=== PATIENT | male | born 1960 | race Caucasian/White ===

== ENCOUNTER → 2023-06-24 16:46 | Outpatient (CLI) | payer MEDICARE, SELFPAY ==
[2023-06-24 16:27] LABS: INR 2.34 (0.9-1.1); Prothrombin Time 23.9 seconds (10.1-12.5)
== END ==
PROVIDERS: PCP Family Medicine; Visit Provider Family Medicine
DX: Z79.01 Long term (current) use of anticoagulants (principal); Z51.81 Encounter for therapeutic drug level monitoring
CPT/HCPCS: 85610

== ENCOUNTER → 2023-08-03 16:54 | Outpatient (CLI) | payer MEDICARE, SELFPAY ==
[2023-08-03 16:24] LABS: INR 3.63 (0.9-1.1)
== END ==
PROVIDERS: PCP Nurse Practitioner Family; Visit Provider Nurse Practitioner Family
DX: Z79.01 Long term (current) use of anticoagulants (principal); Z51.81 Encounter for therapeutic drug level monitoring
CPT/HCPCS: 85610

== ENCOUNTER → 2023-08-30 16:52 | Outpatient (CLI) | payer MEDICARE, SELFPAY ==
[2023-08-30 17:31] LABS: Basophils % 0.7 % (0.1-2.0); Eosinophils # 0.1 K/mm3 (0.0-0.4); Hematocrit 48.4 % (42.0-52.0); Hemoglobin 15.8 g/dL (14.1-18.0); Lymphocytes # 1.3 K/mm3 (0.7-4.5); Lymphocytes % 19.6 % (10-50); Mean Corpuscular HGB Conc 32.7 g/dL (31.8-35.4); Mean Corpuscular Volume 91.8 fl (80-94); Mean Platelet Volume 11.8 fl (7.4-10.4); Monocytes # 0.5 K/mm3 (0.1-1.0); Monocytes % 6.9 % (1.7-9.3); Neutrophils # 4.7 K/mm3 (1.8-7.8); Neutrophils % 71.9 % (37.0-80.0); Platelet Count 185 K/mm3 (142-424); Red Blood Count 5.27 M/mm3 (4.60-6.20); Red Cell Distribution Width 13.9 % (11.5-17.5); White Blood Count 6.5 K/mm3 (4.8-10.8)
[2023-08-30 17:37] LABS: INR 3.52 (0.9-1.1)
[2023-08-30 18:20] LABS: Alanine Aminotransferase 22 U/L (12-78); Albumin Level 4.6 g/dl (3.5-5.0); Alkaline Phosphatase 55 U/L (38-126); Anion Gap 11.6 mEq/L (5-15); Aspartate Amino Transferase 28 U/L (17-59); Bilirubin,Direct 0.2 mg/dl (0.0-0.4); Bilirubin,Indirect 0.2 mg/dL (0.0-0.9); Bilirubin,Total 0.4 mg/dl (0.2-1.3); Bilirubin,Unconjugated 0.2 mg/dL (0.0-1.1); Blood Urea Nitrogen 21 mg/dl (9-20); Calcium 9.6 mg/dl (8.4-10.2); Carbon Dioxide 26 mmol/L (22.0-30.0); Chloride 106 mmol/L (98-107); Estimated Glomerular Filt Rate 75 ml/min (>60); GFR (African American) 91 ML/MIN (>60); Glucose 78 mg/dl (74-100); Potassium 4.6 mmoL/L (3.5-5.1); Sodium 139 mmol/L (136-145); Total Protein,Serum 7.5 g/dl (6.3-8.2)
== END ==
PROVIDERS: PCP Internal Medicine Advanced Heart Failure and Transplant Cardiology; Visit Provider Internal Medicine Advanced Heart Failure and Transplant Cardiology
DX: I50.22 Chronic systolic (congestive) heart failure (principal); Z51.81 Encounter for therapeutic drug level monitoring; Z79.01 Long term (current) use of anticoagulants; Z95.2 Presence of prosthetic heart valve
CPT/HCPCS: 80048; 80076; 85025; 85610

== ENCOUNTER → 2023-09-23 13:33 | Outpatient (CLI) | payer MEDICARE, SELFPAY ==
[2023-09-23 14:12] LABS: INR 2.55 (0.9-1.1); Prothrombin Time 25.9 seconds (10.1-12.5)
[2023-09-23 14:13] LABS: Basophils % 0.6 % (0.1-2.0); Eosinophils # 0.1 K/mm3 (0.0-0.4); Eosinophils % 1.4 % (0.1-12.0); Hematocrit 43.2 % (42.0-52.0); Hemoglobin 14.9 g/dL (14.1-18.0); Lymphocytes # 1.3 K/mm3 (0.7-4.5); Lymphocytes % 19.8 % (10-50); Mean Corpuscular HGB Conc 34.5 g/dL (31.8-35.4); Mean Corpuscular Hemoglobin 30.8 pg (27.0-31.2); Mean Corpuscular Volume 89.2 fl (80-94); Mean Platelet Volume 10.7 fl (7.4-10.4); Monocytes # 0.5 K/mm3 (0.1-1.0); Monocytes % 7.5 % (1.7-9.3); Neutrophils # 4.8 K/mm3 (1.8-7.8); Neutrophils % 70.6 % (37.0-80.0); Platelet Count 181 K/mm3 (142-424); Red Blood Count 4.85 M/mm3 (4.60-6.20); Red Cell Distribution Width 14.1 % (11.5-17.5); White Blood Count 6.8 K/mm3 (4.8-10.8)
[2023-09-23 14:45] LABS: Anion Gap 16.3 mEq/L (5-15); Blood Urea Nitrogen 23 mg/dl (9-20); Calcium 9.6 mg/dl (8.4-10.2); Carbon Dioxide 27 mmol/L (22.0-30.0); Chloride 99 mmol/L (98-107); Estimated Glomerular Filt Rate 68 ml/min (>60); GFR (African American) 82 ML/MIN (>60); Glucose 82 mg/dl (74-100); Potassium 4.3 mmoL/L (3.5-5.1); Sodium 138 mmol/L (136-145)
== END ==
PROVIDERS: PCP Family Medicine; Visit Provider Family Medicine
DX: I50.23 Acute on chronic systolic (congestive) heart failure (principal); Z51.81 Encounter for therapeutic drug level monitoring; Z79.01 Long term (current) use of anticoagulants
CPT/HCPCS: 80048; 85025; 85610

== ENCOUNTER → 2023-09-27 11:50 | Outpatient (CLI) | payer MEDICARE, SELFPAY ==
[2023-09-27 12:31] LABS: INR 3.78 (0.9-1.1); Prothrombin Time 37.4 seconds (10.1-12.5)
[2023-09-27 12:37] LABS: Anion Gap 16.3 mEq/L (5-15); Blood Urea Nitrogen 25 mg/dl (9-20); Calcium 9.8 mg/dl (8.4-10.2); Carbon Dioxide 27 mmol/L (22.0-30.0); Chloride 99 mmol/L (98-107); Estimated Glomerular Filt Rate 75 ml/min (>60); GFR (African American) 91 ML/MIN (>60); Glucose 96 mg/dl (74-100); Potassium 4.3 mmoL/L (3.5-5.1); Sodium 138 mmol/L (136-145)
[2023-09-27 12:38] LABS: Basophils % 0.5 % (0.1-2.0); Eosinophils # 0.1 K/mm3 (0.0-0.4); Eosinophils % 0.9 % (0.1-12.0); Hematocrit 42.7 % (42.0-52.0); Hemoglobin 14.7 g/dL (14.1-18.0); Lymphocytes # 1.1 K/mm3 (0.7-4.5); Lymphocytes % 15.9 % (10-50); Mean Corpuscular HGB Conc 34.3 g/dL (31.8-35.4); Mean Corpuscular Hemoglobin 30.9 pg (27.0-31.2); Mean Corpuscular Volume 90.1 fl (80-94); Mean Platelet Volume 10.4 fl (7.4-10.4); Monocytes # 0.4 K/mm3 (0.1-1.0); Monocytes % 6.1 % (1.7-9.3); Neutrophils # 5.5 K/mm3 (1.8-7.8); Neutrophils % 76.7 % (37.0-80.0); Platelet Count 165 K/mm3 (142-424); Red Blood Count 4.74 M/mm3 (4.60-6.20); Red Cell Distribution Width 14.4 % (11.5-17.5); White Blood Count 7.2 K/mm3 (4.8-10.8)
== END ==
PROVIDERS: PCP Family Medicine; Visit Provider Family Medicine
DX: I50.23 Acute on chronic systolic (congestive) heart failure (principal); Z51.81 Encounter for therapeutic drug level monitoring; Z79.01 Long term (current) use of anticoagulants; Z79.899 Other long term (current) drug therapy
CPT/HCPCS: 80048; 85025; 85610

== ENCOUNTER → 2023-10-04 13:17 | Outpatient (CLI) | payer MEDICARE, SELFPAY ==
[2023-10-04 13:49] LABS: INR 3.24 (0.9-1.1); Prothrombin Time 32.4 seconds (10.1-12.5)
== END ==
PROVIDERS: PCP Family Medicine; Visit Provider Family Medicine
DX: I50.23 Acute on chronic systolic (congestive) heart failure (principal); Z45.2 Encounter for adjustment and management of vascular access device; Z79.899 Other long term (current) drug therapy
CPT/HCPCS: 85610

== ENCOUNTER → 2023-10-11 11:50 | Outpatient (CLI) | payer MEDICARE, SELFPAY ==
[2023-10-11 12:36] LABS: INR 2.31 (0.9-1.1); Prothrombin Time 23.6 seconds (10.1-12.5)
[2023-10-11 12:48] LABS: Alanine Aminotransferase 28 U/L (12-78); Albumin Level 4.3 g/dl (3.5-5.0); Albumin/Globulin Ratio 1.7 (1.1-1.8); Alkaline Phosphatase 58 U/L (38-126); Anion Gap 14.5 mEq/L (5-15); Aspartate Amino Transferase 34 U/L (17-59); Bilirubin,Total 0.2 mg/dl (0.2-1.3); Blood Urea Nitrogen 20 mg/dl (9-20); Calcium 9.3 mg/dl (8.4-10.2); Carbon Dioxide 27 mmol/L (22.0-30.0); Chloride 100 mmol/L (98-107); Estimated Glomerular Filt Rate 68 ml/min (>60); GFR (African American) 82 ML/MIN (>60); Globulin 2.6 g/dL (1.3-3.2); Glucose 97 mg/dl (74-100); Potassium 4.5 mmoL/L (3.5-5.1); Sodium 137 mmol/L (136-145); Total Protein,Serum 6.9 g/dl (6.3-8.2)
== END ==
PROVIDERS: PCP Family Medicine; Visit Provider Family Medicine
DX: I50.23 Acute on chronic systolic (congestive) heart failure (principal); Z45.2 Encounter for adjustment and management of vascular access device; Z79.899 Other long term (current) drug therapy
CPT/HCPCS: 80053; 85610

== ENCOUNTER → 2023-11-01 13:28 | Outpatient (CLI) | payer MEDICARE, SELFPAY ==
[2023-11-01 14:18] LABS: Prothrombin Time 30.2 seconds (10.1-12.5)
== END ==
PROVIDERS: PCP Family Medicine; Visit Provider Family Medicine
DX: Z51.81 Encounter for therapeutic drug level monitoring (principal); Z79.01 Long term (current) use of anticoagulants; I50.23 Acute on chronic systolic (congestive) heart failure; Z79.899 Other long term (current) drug therapy
CPT/HCPCS: 85610

== ENCOUNTER → 2023-11-08 12:07 | Outpatient (CLI) | payer MEDICARE, SELFPAY ==
[2023-11-08 12:40] LABS: Chloride 105 mmol/L (98-107)
[2023-11-08 12:41] LABS: Potassium 4.3 mmoL/L (3.5-5.1); Sodium 140 mmol/L (136-145)
[2023-11-08 12:43] LABS: Alanine Aminotransferase 28 U/L (12-78); Alkaline Phosphatase 59 U/L (38-126); Anion Gap 13.3 mEq/L (5-15); Aspartate Amino Transferase 36 U/L (17-59); Bilirubin,Total 0.4 mg/dl (0.2-1.3); Blood Urea Nitrogen 23 mg/dl (9-20); Carbon Dioxide 26 mmol/L (22.0-30.0); Estimated Glomerular Filt Rate 75 ml/min (>60); GFR (African American) 91 ML/MIN (>60)
[2023-11-08 12:44] LABS: Albumin Level 4.4 g/dl (3.5-5.0); Albumin/Globulin Ratio 1.8 (1.1-1.8); Calcium 8.9 mg/dl (8.4-10.2); Globulin 2.4 g/dL (1.3-3.2); Glucose 111 mg/dl (74-100); Magnesium 1.9 mg/dl (1.6-2.3); Total Protein,Serum 6.8 g/dl (6.3-8.2)
[2023-11-08 12:54] LABS: NT Pro Brain Natriuretic Pep. 1950 pg/mL (0-125)
[2023-11-08 12:57] LABS: INR 2.38 (0.9-1.1); Prothrombin Time 24.3 seconds (10.1-12.5)
== END ==
PROVIDERS: PCP Family Medicine; Visit Provider Family Medicine
DX: I50.23 Acute on chronic systolic (congestive) heart failure (principal); Z79.899 Other long term (current) drug therapy; Z01.818 Encounter for other preprocedural examination
CPT/HCPCS: 80053; 83735; 83880; 85610

== ENCOUNTER → 2023-11-16 12:31 | Outpatient (CLI) | payer MEDICARE, SELFPAY ==
[2023-11-16 13:04] LABS: INR 2.86 (0.9-1.1); Prothrombin Time 28.8 seconds (10.1-12.5)
== END ==
PROVIDERS: PCP Family Medicine; Visit Provider Family Medicine
DX: I50.23 Acute on chronic systolic (congestive) heart failure (principal); Z79.01 Long term (current) use of anticoagulants; Z45.2 Encounter for adjustment and management of vascular access device
CPT/HCPCS: 85610

== ENCOUNTER 2023-11-23 12:37 | Outpatient (CLI) | payer MEDICARE, SELFPAY ==
[2023-11-23 13:18] LABS: INR 2.28 (0.9-1.1); Prothrombin Time 23.3 seconds (10.1-12.5)
[2023-11-23 13:30] LABS: Alanine Aminotransferase 25 U/L (12-78); Albumin Level 4.6 g/dl (3.5-5.0); Albumin/Globulin Ratio 1.7 (1.1-1.8); Alkaline Phosphatase 64 U/L (38-126); Anion Gap 9.5 mEq/L (5-15); Aspartate Amino Transferase 39 U/L (17-59); Bilirubin,Total 0.5 mg/dl (0.2-1.3); Blood Urea Nitrogen 28 mg/dl (9-20); Calcium 8.8 mg/dl (8.4-10.2); Carbon Dioxide 24 mmol/L (22.0-30.0); Chloride 104 mmol/L (98-107); Estimated Glomerular Filt Rate 61 ml/min (>60); GFR (African American) 74 ML/MIN (>60); Globulin 2.7 g/dL (1.3-3.2); Glucose 92 mg/dl (74-100); Magnesium 1.9 mg/dl (1.6-2.3); Potassium 4.5 mmoL/L (3.5-5.1); Sodium 133 mmol/L (136-145); Total Protein,Serum 7.3 g/dl (6.3-8.2)
[2023-11-23 13:42] LABS: NT Pro Brain Natriuretic Pep. 1870 pg/mL (0-125)
== END 2023-11-23 23:59 ==
LOC: LAB.DROPOF 12:47
PROVIDERS: PCP Family Medicine; Visit Provider Family Medicine
DX: I50.9 Heart failure, unspecified (principal)
CPT/HCPCS: 80053; 83735; 83880; 85610

== ENCOUNTER 2023-11-29 11:15 | Outpatient (CLI) | payer MEDICARE, SELFPAY ==
[2023-11-29 11:55] LABS: INR 2.54 (0.9-1.1); Prothrombin Time 25.8 seconds (10.1-12.5)
== END 2023-11-29 23:59 ==
LOC: LAB.DROPOF 11:16
PROVIDERS: PCP Family Medicine; Visit Provider Family Medicine
DX: I50.23 Acute on chronic systolic (congestive) heart failure (principal); Z79.01 Long term (current) use of anticoagulants; Z45.2 Encounter for adjustment and management of vascular access device
CPT/HCPCS: 85610

== ENCOUNTER 2023-12-06 10:57 | Outpatient (CLI) | payer MEDICARE, SELFPAY ==
[2023-12-06 11:26] LABS: INR 3.71 (0.9-1.1); Prothrombin Time 36.8 seconds (10.1-12.5)
== END 2023-12-06 23:59 ==
LOC: LAB.DROPOF 11:00
PROVIDERS: PCP Family Medicine; Visit Provider Family Medicine
DX: I50.23 Acute on chronic systolic (congestive) heart failure (principal); Z45.2 Encounter for adjustment and management of vascular access device; Z79.899 Other long term (current) drug therapy
CPT/HCPCS: 85610

== ENCOUNTER 2023-12-13 13:54 | Outpatient (CLI) | payer MEDICARE, SELFPAY ==
[2023-12-13 14:49] LABS: INR 5.05 (0.9-1.1); Prothrombin Time 49.1 seconds (10.1-12.5)
== END 2023-12-13 23:59 ==
LOC: LAB.DROPOF 13:56
PROVIDERS: PCP Family Medicine; Visit Provider Family Medicine
DX: R79.1 Abnormal coagulation profile (principal)
CPT/HCPCS: 85610

== ENCOUNTER 2023-12-20 12:00 | Outpatient (CLI) | payer MEDICARE, SELFPAY ==
[2023-12-20 12:53] LABS: INR 2.85 (0.9-1.1); Prothrombin Time 28.7 seconds (10.1-12.5)
== END 2023-12-20 23:59 ==
LOC: LAB.DROPOF 12:02
PROVIDERS: PCP Family Medicine; Visit Provider Family Medicine
DX: I50.23 Acute on chronic systolic (congestive) heart failure (principal); Z51.81 Encounter for therapeutic drug level monitoring; Z79.01 Long term (current) use of anticoagulants
CPT/HCPCS: 85610

== ENCOUNTER 2023-12-30 11:00 | Outpatient (CLI) | payer MEDICARE, SELFPAY ==
[2023-12-30 13:13] LABS: INR 2.19 (0.9-1.1); Prothrombin Time 22.5 seconds (10.1-12.5)
== END 2023-12-30 23:59 ==
PROVIDERS: PCP Family Medicine; Visit Provider Family Medicine
DX: I50.23 Acute on chronic systolic (congestive) heart failure (principal); Z79.01 Long term (current) use of anticoagulants
CPT/HCPCS: 85610

== ENCOUNTER 2024-01-03 10:39 | Outpatient (CLI) | payer MEDICARE, SELFPAY ==
[2024-01-03 11:53] LABS: INR 1.64 (0.9-1.1); Prothrombin Time 17.1 seconds (10.1-12.5)
== END 2024-01-03 23:59 ==
LOC: LAB.DROPOF 10:45
PROVIDERS: PCP Family Medicine; Visit Provider Family Medicine
DX: I50.23 Acute on chronic systolic (congestive) heart failure (principal); Z79.01 Long term (current) use of anticoagulants
CPT/HCPCS: 85610

== ENCOUNTER 2024-01-10 10:12 | Outpatient (CLI) | payer MEDICARE, SELFPAY ==
[2024-01-10 11:19] LABS: INR 2.59 (0.9-1.1); Prothrombin Time 26.3 seconds (10.1-12.5)
== END 2024-01-10 23:59 ==
PROVIDERS: PCP Family Medicine; Visit Provider Family Medicine
DX: I50.23 Acute on chronic systolic (congestive) heart failure (principal); Z79.01 Long term (current) use of anticoagulants; Z45.2 Encounter for adjustment and management of vascular access device
CPT/HCPCS: 85610

== ENCOUNTER 2024-01-14 12:38 | Emergency (ER) | payer MEDICARE, SELFPAY ==
[2024-01-14 12:40] VITALS: BP 115/70; PULSE 87; RESP 18; TEMP 36.7; O2SAT 97; BMI 22.1
--- NOTE | 2024-01-14 13:22 | PC.NURSE ---
DR MENDEZ AT BEDSIDE TO EVALUATE PT
--- NOTE | 2024-01-14 13:26 | XR_ITS ---
FINAL REPORT CLINICAL HISTORY: dog bite index finger FINDINGS: RIGHT HAND Three views demonstrate no acute fracture or dislocation. The visualized joint spaces are normally aligned. The soft tissues are unremarkable. No radiopaque foreign body is present. IMPRESSION: No acute bony abnormality. Reviewed, Interpreted and Dictated by Lito Funes MD Transcribed by Betty River Authenticated and [facility]
--- NOTE | 2024-01-14 13:40 | PC.NURSE ---
PT TO XR
--- NOTE | 2024-01-14 13:51 | HMH.EDGENADL ---
Discharge Plan Disposition Patient Disposition: Home, Self-Care Condition: Good Prescriptions Prescriptions: New amoxicillin-pot clavulanate 875-125 mg tablet 1 tab PO BID Qty: 20 0RF No Action dapagliflozin propanediol 10 mg tablet 10 mg PO DAILY milrinone in 5 % dextrose 20 mg/100 mL (200 mcg/mL) piggyback continuous IV infusion amoxicillin 500 mg tablet 500 mg PO TID Qty: 30 0RF codeine-guaifenesin 10-100 mg/5 mL liquid 10 ml PO Q4-6H PRN (Reason: cough) Qty: 120 2RF atorvastatin 40 mg tablet 40 mg PO HS aspirin 81 mg tablet,delayed release (DR/EC) 81 mg PO DAILY multivitamin Tablet 1 tab PO DAILY Entresto 24-26 mg tablet See Rx Instructions PO BID Rx Instructions: Take 1/2 tab orally twice a day; fluticasone propionate [Flonase Allergy Relief] 50 mcg/actuation spray,suspension 2 spray intranasal DAILY Rx Instructions: administer into each nostril albuterol sulfate 90 mcg/actuation HFA aerosol inhaler 2 puff inhalation Q4-6H PRN torsemide 10 mg tablet 10 mg PO DAILY spironolactone 25 mg tablet 25 mg PO DAILY Qty: 30 2RF warfarin 4 mg tablet 4 mg PO .BID 3 days/week 30 Days Qty: 60 2RF omeprazole 40 mg capsule,delayed release(DR/EC) 40 mg PO DAILY Qty: 30 2RF warfarin 5 mg tablet 5 mg PO 4XW 30 Days Qty: 18 2RF Referrals Follow up/Referrals: Travis Perez MD [Primary Care Provider] - See instructions Activity Restrictions/Add. Instructions Additional Instructions/Restrictions: You were evaluated in the emergency department today. Please keep your wound clean and dry. Do not submerge under any water. 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 Follow-up closely with your primary care provider. Monitor for any signs of infection, such as fevers, chills, redness, warmth or pus draining from the wounds. Return to the emergency department for new or worsening symptoms. Please follow-up with your neighbor regarding the dog's rabies vaccination status. Clinical Impressions Clinical Impression: Dog bite of index finger Instructions Patient Instructions: How to Care for a Domestic Animal Bite, Animal Bites Discharge ED Provider: lAisa Werner General Adult HPI General Chief complaint: Animal Bite Stated complaint: bit by dog rt finger Time Seen by Provider: 01/14/24 13:13 Mode of Arrival: Ambulatory Limitations: No Limitations Description of Symptoms (Recalled from ER Triage Doc. by RN): PT REPORTS DOG BITE TO RIGHT INDEX FINGER. DOG BELONGS TO NEIGHBOR, REPORTS DOG IS VACCINATED BUT NO DOCUMENTATION History of Present Illness HPI narrative: This patient is a 63-year-old male with a history of advanced heart failure awaiting cardiac transplant on continuous milrinone drip presenting to the emergency department with concern for a dog bite to his right index finger. He reports that his neighbors Mayo bit him. The dog is up-to-date on vaccination, however this is per his neighbor. Patient is to verify this at home to ensure he does not need rabies prophylaxis. Patient is already up-to-date on tetanus. No other injuries noted. No numbness, tingling, or other concerns noted. Related Data Home Medications Medication Instructions Recorded Confirmed albuterol sulfate 90 mcg/actuation 2 puff inhalation Q4-6H PRN 06/24/23 10/05/23 aerosol inhaler aspirin 81 mg tablet,delayed 81 mg PO DAILY 06/24/23 10/05/23 release atorvastatin 40 mg tablet 40 mg PO HS HLD 06/24/23 10/05/23 fluticasone propionate 50 2 spray intranasal DAILY 06/24/23 10/05/23 mcg/actuation nasal spray,suspension (Flonase Allergy Relief) multivitamin 1 tab PO DAILY 06/24/23 10/05/23 sacubitril 24 mg-valsartan 26 mg See Rx Instructions PO BID 06/24/23 10/05/23 tablet (Entresto) torsemide 10 mg tablet 10 mg PO DAILY edema 09/27/23 10/05/23 dapagliflozin propanediol 10 mg 10 mg PO DAILY Diabetes 10/05/23 10/05/23 tablet milrinone 20 mg/100 mL(200 mcg/mL) continuous IV infusion Heart 10/05/23 10/05/23 in 5 % dextrose intravenous piggybk failure Previous Rx's Medication Instructions Recorded spironolactone 25 mg tablet 25 mg PO DAILY edema #30 tabs 09/27/23 amoxicillin 500 mg tablet 500 mg PO TID #30 tabs 10/05/23 codeine 10 mg-guaifenesin 100 mg/5 10 ml PO Q4-6H PRN cough #120 mL 10/05/23 mL oral liquid warfarin 4 mg tablet 4 mg PO .BID 3 days/week 30 days 11/24/23 #60 tabs omeprazole 40 mg capsule,delayed 40 mg PO DAILY #30 caps 12/06/23 release warfarin 5 mg tablet 5 mg PO 4XW 30 days #18 tabs 12/27/23 amoxicillin 875 mg-potassium 1 tab PO BID #20 tabs 01/14/24 clavulanate 125 mg tablet Allergies Allergy/AdvReac Type Severity Reaction Status Date / Time No Known Allergies Allergy Verified 10/05/23 09:51 [facility] Disclaimer: The information contained in this section may have been updated after the patient was seen, as this information can be updated by other users. Medical History A-fib Congestive heart failure Hyperlipidemia Surgical History Aortic valve replaced Pacemaker Family History Father Coronary artery disease Heart attack Social History Smoking Status: Former smoker alcohol intake: former substance use type: denies use current occupational status: disabled Travel in the last 8 weeks: None housing: house ROS Obtained: Yes All systems reviewed & no additional complaints except as documented Physical Exam General General appearance: alert and in no apparent distress Head Head exam: atraumatic and normocephalic Eye Eye exam: Present normal appearance, PERRL and EOMI ENT ENT exam: Present normal exam, normal oropharynx, mucous membranes moist and normal external ear exam Neck Neck exam: Present normal inspection, full ROM and trachea midline; Absent tenderness Chest Chest inspection: Present normal inspection and symmetric chest wall rise; Absent tenderness Respiratory Respiratory exam: Present normal lung sounds bilaterally; Absent respiratory distress, wheezes, stridor or accessory muscle use Cardiovascular Cardiovascular exam: Present regular rate and normal rhythm Abdominal Exam Abdominal exam: Present soft; Absent distention, tenderness or guarding Extremities Exam Extremities exam: Present full ROM, normal capillary refill and other (Small superficial laceration to the palmar aspect of the middle phalanx of the right index finger. Neurovascularly intact distally. Range of motion intact. No active bleeding. No obvious contamination.); Absent tenderness or edema Back Exam Back exam: Present normal inspection and full ROM; Absent tenderness Neurological Exam Neurological exam: Present alert, oriented X3, CN II-XII intact and normal gait; Absent motor sensory deficit Psychiatric Psychiatric exam: Present normal affect and normal mood Skin Skin exam: Present warm and dry Medical Decision Making Medical Records Medical records reviewed: Yes I reviewed the patient's medical records. [place] Inquiry Pt receiving controlled substance: No Vital Signs: 01/14/24 12:40 01/14/24 14:40 Temperature 98.1 F 98.1 F Temperature Source Oral Oral Pulse Rate 85 Pulse Rate [Apical] 87 Respiratory Rate 18 18 Blood Pressure 118/70 Blood Pressure [Left Arm] 115/70 Blood Pressure Mean [Left Arm] 85 Blood Pressure Source Automatic Cuff Blood Pressure Source [Left Arm] Automatic Cuff Blood Pressure Position Sitting Blood Pressure Position [Left Arm] Sitting 02 Sat by Pulse Oximetry 97 Oxygen Delivery Method Room Air Room Air Lab Data Lab results reviewed: Yes I reviewed the patient's lab results. Orders (Tests/Meds): ED MEDICATIONS Discontinued Medications Generic Name Dose Route Start Last Admin Trade Name Freq PRN Reason Stop Dose Admin Amoxicillin/Clavulanate Potassium 1 each 01/14/24 13:26 01/14/24 14:14 Amoxicillin/Clavulanate Potassium 875/125mg Tablet PO 01/14/24 13:27 1 each ONCE ONE Administration ORDERS Category Date Time Status XR hand RT min 3V Stat Exams 01/14/24 13:26 Completed Medical Decision Narrative: In summary, this patient is a 63-year-old male presenting to the Emergency Department for evaluation of dog bite to the right index finger. Differential diagnoses considered include but are not limited to laceration, abrasion, foreign body, open fracture. Ruling out the most morbid conditions drove assessment. It should be noted patient's history includes venous heart failure on milrinone drip which is not at goal therapy. This complicates all aspects of care by increasing patient's risk for morbidity. On exam, the patient is well-appearing with a small superficial wound to the right index finger. He is already up-to-date on tetanus. Wound was copiously irrigated with Betadine. X-ray was obtained to evaluate for foreign body or underlying fracture. I independently interpreted x-ray prior to the radiologist read and noted no acute fracture, retained foreign body, or other concern. Please see their read for final interpretation. At this time, feel patient is appropriate for discharge with outpatient management of dog bite. He is given prescription for Augmentin. He is high risk for potential infection given his comorbidities, so I gave him very strict return precautions and instructions for close patient follow-up. I gave him instructions for wound care. Wound was not repaired, as I feel that the risk would outweigh the benefit given it was a dog bite. I advised that he verifies the dog's rabies status. He was given strict return precautions Critical Care Critical Care Time Critical Care Time: No
--- NOTE | 2024-01-14 13:51 | PC.NURSE ---
Pt soaking hand in sterile water and iodine
[2024-01-14] MEDS: AMOXICILLIN/CLAVULANATE POTASSIUM 875/125MG TABLET 1 EACH PO (14:14)
[2024-01-14 14:40] VITALS: BP 118/70; PULSE 85; RESP 18; TEMP 36.7; O2SAT 99
== END 2024-01-14 14:40 | disposition home or self-care (01) ==
PROVIDERS: Emergency Provider Emergency Medicine; PCP Family Medicine
DX: S61.250A Open bite of right index finger without damage to nail, initial encounter (principal); I48.91 Unspecified atrial fibrillation; I50.9 Heart failure, unspecified; E78.5 Hyperlipidemia, unspecified; Z87.891 Personal history of nicotine dependence; W54.0XXA Bitten by dog, initial encounter
CPT/HCPCS: 73130; 99283

== ENCOUNTER 2024-01-17 10:19 | Outpatient (CLI) | payer MEDICARE, SELFPAY ==
[2024-01-17 10:57] LABS: Prothrombin Time 31.1 seconds (10.1-12.5)
== END 2024-01-17 23:59 ==
PROVIDERS: PCP Family Medicine; Visit Provider Family Medicine
DX: I50.23 Acute on chronic systolic (congestive) heart failure (principal); Z45.2 Encounter for adjustment and management of vascular access device; Z79.899 Other long term (current) drug therapy; Z79.01 Long term (current) use of anticoagulants
CPT/HCPCS: 85610

== ENCOUNTER 2024-01-24 10:11 | Outpatient (CLI) | payer MEDICARE, SELFPAY ==
[2024-01-24 10:42] LABS: INR 2.73 (0.9-1.1); Prothrombin Time 27.6 seconds (10.1-12.5)
== END 2024-01-24 23:59 ==
PROVIDERS: PCP Family Medicine; Visit Provider Family Medicine
DX: I50.23 Acute on chronic systolic (congestive) heart failure (principal); Z45.2 Encounter for adjustment and management of vascular access device; Z79.899 Other long term (current) drug therapy; Z01.812 Encounter for preprocedural laboratory examination
CPT/HCPCS: 85610

== ENCOUNTER 2024-01-31 10:23 | Outpatient (CLI) | payer MEDICARE, SELFPAY ==
[2024-01-31 10:49] LABS: INR 3.37 (0.9-1.1); Prothrombin Time 33.6 seconds (10.1-12.5)
== END 2024-01-31 23:59 ==
PROVIDERS: PCP Family Medicine; Visit Provider Family Medicine
DX: I50.23 Acute on chronic systolic (congestive) heart failure (principal); Z79.899 Other long term (current) drug therapy; Z45.2 Encounter for adjustment and management of vascular access device
CPT/HCPCS: 85610

== ENCOUNTER 2024-02-07 09:48 | Outpatient (CLI) | payer MEDICARE, SELFPAY ==
[2024-02-07 10:15] LABS: INR 2.79 (0.9-1.1); Prothrombin Time 28.2 seconds (10.1-12.5)
== END 2024-02-07 23:59 ==
PROVIDERS: PCP Family Medicine; Visit Provider Family Medicine
DX: I50.23 Acute on chronic systolic (congestive) heart failure (principal); Z45.2 Encounter for adjustment and management of vascular access device; Z79.899 Other long term (current) drug therapy
CPT/HCPCS: 85610

== ENCOUNTER 2024-02-14 10:03 | Outpatient (CLI) | payer MEDICARE, SELFPAY ==
[2024-02-14 10:58] LABS: INR 3.08 (0.9-1.1); Prothrombin Time 30.9 seconds (10.1-12.5)
== END 2024-02-14 23:59 ==
PROVIDERS: PCP Family Medicine; Visit Provider Family Medicine
DX: I50.23 Acute on chronic systolic (congestive) heart failure (principal); Z79.899 Other long term (current) drug therapy; Z45.2 Encounter for adjustment and management of vascular access device
CPT/HCPCS: 85610

== ENCOUNTER 2024-02-21 14:24 | Outpatient (CLI) | payer MEDICARE, SELFPAY ==
[2024-02-21 15:21] LABS: INR 2.63 (0.9-1.1); Prothrombin Time 26.7 seconds (10.1-12.5)
== END 2024-02-21 23:59 ==
LOC: LAB.DROPOF 14:26
PROVIDERS: PCP Family Medicine; Visit Provider Family Medicine
DX: R79.1 Abnormal coagulation profile (principal); I50.9 Heart failure, unspecified; Z79.899 Other long term (current) drug therapy
CPT/HCPCS: 85610

== ENCOUNTER 2024-02-28 09:44 | Outpatient (CLI) | payer MEDICARE, SELFPAY ==
[2024-02-28 10:19] LABS: INR 3.18 (0.9-1.1); Prothrombin Time 31.8 seconds (10.1-12.5)
== END 2024-02-28 23:59 ==
LOC: LAB.DROPOF 09:46
PROVIDERS: PCP Family Medicine; Visit Provider Family Medicine
DX: I50.23 Acute on chronic systolic (congestive) heart failure (principal); Z51.81 Encounter for therapeutic drug level monitoring; Z79.01 Long term (current) use of anticoagulants; Z45.2 Encounter for adjustment and management of vascular access device; Z79.899 Other long term (current) drug therapy
CPT/HCPCS: 85610

== ENCOUNTER 2024-04-19 11:05 | Outpatient (CLI) | payer MEDICARE, SELFPAY ==
[2024-04-19 11:37] LABS: Basophils % 0.5 % (0.1-2.0); Eosinophils # 0.1 K/mm3 (0.0-0.4); Eosinophils % 1.4 % (0.1-12.0); Hematocrit 31.7 % (42.0-52.0); Hemoglobin 9.8 g/dL (14.1-18.0); Lymphocytes # 1.3 K/mm3 (0.7-4.5); Lymphocytes % 13.9 % (10-50); Mean Corpuscular HGB Conc 30.9 g/dL (31.8-35.4); Mean Corpuscular Hemoglobin 29.9 pg (27.0-31.2); Mean Corpuscular Volume 96.6 fl (80-94); Mean Platelet Volume 8.7 fl (7.4-10.4); Monocytes # 0.5 K/mm3 (0.1-1.0); Monocytes % 5.3 % (1.7-9.3); Neutrophils # 7.1 K/mm3 (1.8-7.8); Neutrophils % 78.9 % (37.0-80.0); Platelet Count 480 K/mm3 (142-424); Red Blood Count 3.28 M/mm3 (4.60-6.20)
[2024-04-19 12:29] LABS: Alanine Aminotransferase 33 U/L (12-78); Albumin/Globulin Ratio 1.7 (1.1-1.8); Alkaline Phosphatase 99 U/L (38-126); Anion Gap 17.5 mEq/L (5-15); Aspartate Amino Transferase 25 U/L (17-59); Bilirubin,Total 0.6 mg/dl (0.2-1.3); Blood Urea Nitrogen 58 mg/dl (9-20); Calcium 9.7 mg/dl (8.4-10.2); Carbon Dioxide 25 mmol/L (22.0-30.0); Chloride 97 mmol/L (98-107); Estimated Glomerular Filt Rate 44 ml/min (>60); GFR (African American) 53 ML/MIN (>60); Globulin 2.4 g/dL (1.3-3.2); Glucose 307 mg/dl (74-100); Potassium 4.5 mmoL/L (3.5-5.1); Sodium 135 mmol/L (136-145); Total Protein,Serum 6.4 g/dl (6.3-8.2)
[2024-04-23 08:51] LABS: Tacrolimus (Prograf) 11.9
== END 2024-04-19 23:59 | disposition home or self-care (01) ==
PROVIDERS: Visit Provider Internal Medicine
DX: Z94.1 Heart transplant status (principal)
CPT/HCPCS: 80053; 80197; 85025

== ENCOUNTER 2025-03-01 09:30 | Outpatient (CLI) | payer MEDICARE, SELFPAY ==
[2025-03-01 17:32] LABS: Microalbumin/Creatinine Ratio 129.5
[2025-03-01 17:33] LABS: Creatinine,Urine Random 80 mg/dL (Not Estab.)
== END 2025-03-01 23:59 | disposition home or self-care (01) ==
LOC: LAB.DROPOF 03-02 08:49
PROVIDERS: PCP Nurse Practitioner Family; Visit Provider Nurse Practitioner Family
DX: E11.9 Type 2 diabetes mellitus without complications (principal); Z79.4 Long term (current) use of insulin
CPT/HCPCS: 82043; 82570

== ENCOUNTER 2025-04-20 10:00 | Outpatient (CLI) | payer MEDICARE, SELFPAY ==
[2025-04-21 00:05] LABS: Chlamydia trachomatis Negative (Negative); Neisseria gonorrhoeae Negative (Negative); Trichomonas vaginalis Negative (Negative)
== END 2025-04-20 23:59 | disposition home or self-care (01) ==
LOC: LAB.DROPOF 04-23 10:01
PROVIDERS: PCP Nurse Practitioner Family; Visit Provider Nurse Practitioner Family
DX: Z20.2 Contact with and (suspected) exposure to infections with a predominantly sexual mode of transmission (principal)
CPT/HCPCS: 87491; 87591; 87661

== ENCOUNTER 2025-05-22 09:24 | Outpatient (CLI) | payer MEDICARE, SELFPAY ==
--- OUTSIDE RECORDS SUMMARY | 2025-05-02 09:15 | XMS_ITS | Encounter Summary ---
Author Organization Healthcare Address [address] [place] [address] Care Team Providers Care Spice Room Worker Name Role Phone Gloria Alas PharmD Unavailable [phone] Travis Perez MD Primary Care Provider Rosa vailable Reason for Referral * Consultation (Routine) - Authorized Specialty Diagnoses / Procedures Referred By Contac t Referred To Contact Physical Therapy Diagnoses Urinary retention Aracely Pritchard MD [address] [address] Phone: tel: fax: Referral ID Status Reason Start Date Expiration Date Visits Requested Visits Authorized [id number] Authorized Consult and Treat 05/02/2025 11/01/2026 1 1 Reason for Visit * Reason Comments Follow-up Encounter Details Date Type Department Care Team ([facility] Contact Info) Description 05/02/2025 9:15 AM EDT Office Visit Medical Office Building Urology [address], [address] [place] [address] Aracely Pritchard MD [address] [address] Urinary retention (Primary Dx) Social History Tobacco Use Types Packs/Day Years Used Date Smoking Tobacco: Former Cigarettes Q uit: 2010 Passive Smoke Exposure: Current Smokeless Tobacco: Never Comments:Quit 2010 Smoked 1 PPD for ~ 10 years Alcohol Use Standard Drinks/Week Comments Never 0 (1 standard drink = 0.6 oz pur e alcohol) Humiliation, Afraid, Rape, and Kick questionnair e Answer Date Recorded Within the last year, have y ou been afraid of your partner or ex-partner? No 12/12/2024 Within the last year, have y ou been humiliated or emotionally abused in other ways by your partner or ex-partner? No Within the last year, have y ou been kicked, hit, slapped, or otherwise physically hurt by your partner or ex-partner? No 12/12/2024 Within the last year, have y ou been raped or forced to have any kind of sexual activity by your partner or ex-partner? No 12/12/2024 PHQ-2 Answer Date Recorded Patient Health Questionnaire-2 Score 0 05/02/2025 Hunger Vital Sign Answer Date Recorded Within the past 12 months, y ou worried that your food would run out before you got the money to buy more. Never true 12/12/19 Within the past 12 months, t he food you bought just didn't last and you didn't have money to get more. Never true 12/12/2024 PRAPARE - Transportation Answer Date Re corded In the past 12 months, has l ack of transportation kept you from medical appointments or from getting medications? No 11/23 In the past 12 months, has l ack of transportation kept you from meetings, work, or from getting things needed for daily living? No 12/12/2024 Housing Stability Vital Sign Answer Phillip e Recorded In the last 12 months, was t here a time when you were not able to pay the mortgage or rent on time? No 08/14/2024 In the last 12 months, how many places have you lived? 1 08/14/2024 In the last 12 months, was t here a time when you did not have a steady place to sleep or slept in a jail (including now)? No 08/14/2024 PHQ-9 Answer Date Recorded Patient Health Questionnaire-9 Score 0 01/04/2025 Housing Stability Vital Sign Answer Phillip e Recorded In the last 12 months, was t here a time when you were not able to pay the mortgage or rent on time? No 12/12/2024 In the past 12 months, how m any times have you moved where you were living? 0 12/12/2024 At any time in the past [address] [facility], were you homeless or living in a jail (including now)? No 12/12/2024 CAGE ASSESSMENT Answer Date Recorded Cage unable to access Not on file 12/25/2024 Cage max number of drinks Not on file 2024 Cage Beverages a week Not on file 12/25/2024 Have you ever felt you should CUT down on your d rinking? 0 12/25/2024 Have you been ANNOYED by people criticizing your drinking? 0 12/25/2024 Have you felt GUILTY about your drinking? 0 12/25/2024 Have you had a drink first t beatris in the morning ([employer]) to steady your nerves or to get rid of a hangover? 0 12/25/2024 CAGE Questionnaire Score 0 025 Utilities Answer Date Recorded In the past 12 months has th e [employer], gas, oil, or water [email or web address] threatened to shut off services in your home? No 12/12/2024 PHQ-2A Answer Date Recorded Depression Risk 0 06/14/2024 Sex and Gender Information Value Date Recorded Sex Assigned at Male 05/26/2024 2:53 PM EDT Legal Sex Male 6:00 PM EDT Gender Identity Male 12/25/2024 7:21 AM EST Sexual Orientation Not on file documented as of this encounter Last Filed Vital Signs Vital Sign Reading Time Taken Comments Blood Pressure 129/78 05/02/2025 9:03 AM EDT Pulse 96 05/02/2025 9:03 AM EDT Temperature - - Respiratory Rate - - Oxygen Saturation - - Inhaled Oxygen Concentration - - Weight 68.5 kg (151 lb) 05/02/2025 9:03 AM EDT Height - - Body Mass Index 21.06 03/15/2025 8:28 AM EDT documented in this encounter Functional Status * Over the past 2 weeks, how often have you been bothered by any of the following problems? Question Answer Date of Assessment Author Little interest or pleasure in doing things Not at all 05/02/2025 9:05 AM EDT Kierra Nye Feeling down, depressed, or hopeless Not at all 05/02/2025 9:05 AM ALIZAT Kierra Nye Patient Health Questionnaire -2 Score 0 05/02/2025 9:05 AM Kierra Calvert * If you checked off any problems on this questionnaire so far, Question Answer Date of Assessment Author How difficult have these problems made it for you to do your work, take care of things at home, or get along with other people? Not difficult at all 05/02/2025 9:05 AM Kierra Calvert documented as of this encounter Miscellaneous Notes * Progress Notes - Aracely Pritchard MD - 05/02/2025 9:15 AM EDT CC: post op PVP HPI: Madan Zaidi is a 65 y.o. male with incomplete bladder emptying, recurrent UTI who is now s/p PVP on 12/25/24. He is doing very well and reports increased stream, PVR today was 0. He is having some mild leakage, is interested in PFPT. He had a PSA drawn one month ago which was 3.68, previously was 2.32. Of note, he had a sexual partner who was diagnosed with Trichomonas, he tested negative and was treated. He has not had any UTIs. PE: GEN: NAD ABD: soft, NT, ND LABS: I have personally reviewed the following labs: Lab Results Component Value Date CREATININE 1.9 04/10/2025 EGFR 48 03/15/2025 IMAGING: I have personally reviewed the imaging below: none IMPRESSION: 65 y.o. male s/p PVP PLAN: Continues with low PVRs, doing well. Referred for PFPT for leakage PSA higher than previous, could be elevated in post surgical period so will plan for repeat in 6 months. If still high, will consider MRI Follow up in 6 months Approximately 20 min was spent on this patient encounter Aracely Pritchard MD Urology documented in this encounter Plan of Treatment Upcoming Encounters Date Type Department Care Team (Late st Contact Info) Description 06/20/2025 8:30 AM EDT Clinical Support [facility] [address] [place] [address] 06/20/2025 9:15 AM EDT Office Visit [facility]aim[facility] [address] [place] [address] 10/31/2025 9:15 AM EST Office Visit Medical Office Building Urology [address], [address] [place] [address] Aracely Pritchard MD [address] [place] [address] Scheduled Orders Name Type Priority Associated Diagnoses Orde r Schedule PSA, diagnostic Lab Routine Urinary retention Expected: 11/01/2025 (Approximate), Expires: 11/03/2026 Scheduled Referrals Name Type Priority Associated Diagnoses Order Schedule Ambulatory referral to Physical Therapy Outpatient Referral Routine Urinary retention Expected: 05/02/2025 (Approximate), Expires: 11/01/2026 documented as of this encounter Procedures Procedure Name Priority Date/Time Associated Diagnosis Comments POC US BLADDER SCAN FOR VOLUME Routine 05/02/2025 9:06 AM EDT Urinary retention documented in this encounter Results * POC US Bladder Volume (05/02/2025 9:06 AM EDT) Urine, Volume 26 mL IMAGING Anatomical Region Laterality Modality Other us Aracely Pritchard MD IMG POINT OF CARE ULTRASOUND Final Result documented in this encounter Visit Diagnoses Diagnosis Urinary retention- Primary Unspecified retention of urine documented in this encounter Additional Health Concerns Infection Onset Date Last Indicated Resolved Time e. coli 06/26/2024 08/12/2024 Enteropathogenic E. coli (EPEC) 06/28/2024 Assessment Noted Time PHQ-9 Depression Total Score: 0 01/04/20 25 12:49 PM EST A fall risk assessment has been complete d for the patient 05/02/2025 9:05 AM EDT A Body Mass Index follow-up plan has been documented for the patient 05/02/2025 9:48 AM EDT documented as of this encounter Care Teams Spice Room Worker Relationship Specialty Start Date End Date Travis Perez MD [address] [place] [address] PCP - General Family Medicine 04/26/24 Gloria Alas, PharmD [address] [place] [phone] Pharmacist Pharmacy 12/27/23 documented as of this encounter
--- NOTE | 2025-05-22 09:27 | XR_ITS ---
FINAL REPORT CLINICAL HISTORY: right foot injury..twisted 1 day ago COMPARISON: None FINDINGS: RIGHT ANKLE 3 views of the right ankle were obtained. There is no acute fracture or dislocation. There is a 5 mm well-corticated opacity adjacent to the inferior tip of the lateral malleolus, that may represent a remote fracture fragment. The mortise is intact. Visualized joint spaces are normally aligned. Soft tissues are unremarkable. IMPRESSION: No acute bony abnormality. Reviewed, Interpreted and Dictated by Lito Funes MD Transcribed by Carla Lora Authenticated and [facility]
--- NOTE | 2025-05-22 09:27 | XR_ITS ---
FINAL REPORT CLINICAL HISTORY: right foot injury..twisted 1 day ago COMPARISON: none FINDINGS: RIGHT FOOT 3 views of the right foot were obtained. There is no acute fracture or dislocation. Visualized joint spaces are normally aligned. Extensive vascular calcifications are noted. IMPRESSION: No acute bony abnormality. Reviewed, Interpreted and Dictated by Lito Funes MD Transcribed by Carla Lora Authenticated and [facility]
--- OUTSIDE RECORDS SUMMARY | 2025-05-22 09:28 | XMS_ITS | Clinical Summary ---
Author Organization Healthcare Address [address] [place] [address] Care Team Providers Care Thrill Performer Name Role Phone Gloria Alas PharmD Unavailable [phone] Travis Perez MD Primary Care Provider Rosa vailable Allergies Active Allergy Reactions Criticality Noted Date Comments Anesthetics, Amide Other - please document in the comment field Low 2024 Patient is NOT allergic to amide local anesthetics. Pt was told to tell people this after his heart transplant, I assume because of possible cardiotoxicity from LAST He has had amide LA in the past before his transplant without problem. So this is NOT a true allergy. Bhupinder Prado MD, 12-25-24. Quinolones Other - please document in the comment field Low 04/05/2023 Known aneurysm Medications Multiple Vitamins-Minerals (Mens 50+ Multivitamin) tablet Take 1 tablet by mouth 1 (one) time each day. 90 tablet 3 05/02/20 24 Active aspirin 81 MG EC tablet Take 1 tablet (81 mg) by mouth 1 (one) time each day. 90 tablet 3 05/29/20 24 Active Calcium Carbonate-Vitamin D (calcium-vitamin D) 500-200 MG-UNIT tablet Take 1 tablet by mouth 1 (one) time each day with lunch. 90 tablet 3 05/29/20 24 Active glucose blood test strip Use to test blood glucose three times daily. E11.9 300 each 05/29/20 24 Active Lancet Devices (Lancing Device) misc Use three times daily to test blood glucose 1 each 05/29/20 24 Active Lancets misc Use three times daily to test blood glucose. 100 each 05/29/20 24 Active insulin aspart, with niacinamide, (Fiasp) 100 UNIT/ML injection per correction scale as follows: blood sugar 150-199 use 1 unit, 200-249 use 2 units, 250-299 use 3 units, 300-349 use 4 units, 350-399 use 5 units, >399 use 6 units and call provider. 10 mL 12/20/19 Active Blood Glucose Monitoring Suppl (True Metrix Meter) w/Device kit 12/02/19 Active metFORMIN XR (Glucophage-XR) 500 MG 24 hr tablet Take 1 tablet (500 mg) by mouth 1 (one) time each day with dinner. Do not crush, chew, or split. 30 tablet 01/10/20 25 Active lisinopril 5 MG tabletIndications:Hea rt transplanted ([facility]),Long-term use of immunosuppressant medication Take 1 tablet (5 mg) by mouth daily. 30 tablet 01/11/20 25 026 Active magnesium chloride 64 MG EC tablet Take 2 tablets (128 mg) by mouth 2 (two) times a day. 120 tablet 01/17/20 25 Active pantoprazole (Protonix) 40 MG EC tablet Take 1 tablet (40 mg) by mouth daily. Do not crush, chew, or split. 30 tablet 2 02/02/20 Active Additional Information Patient not taking.Reported on 05/02/2025 insulin pen needle (NovoFine Autocover Pen Needle) 30G X 8 mm miscIndications:Heart transplanted ([facility]) Use three times daily as needed for sliding scale insulin. 100 each 03/15/20 Active tacrolimus 1 MG PO capsule Take 3 capsules by mouth every morning AND 2 capsules every evening. 150 capsule 03/16/20 Active atorvastatin (Lipitor) 40 MG tablet Take 1 tablet by mouth daily. 30 tablet 03/16/20 25 026 Active albuterol 108 (90 Base) MCG/ACT inhaler Inhale 2 puffs 4 times a day as needed for shortness of breath. 1 each 04/12/20 Active fluticasone (Flonase) 50 MCG/ACT nasal spray Administer 1 spray into each nostril daily. Shake gently. Before first use, prime pump. After use, clean tip and replace cap. 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 failure and stage 1 through stage 4 chronic kidney disease, or unspecified chronic kidney disease 08/23/2024 Pulmonary histoplasmosis capsulati, unspecified 08/23/2024 Status post transplant, heart 03/28/2024 Long-term use of immunosuppressant medication SVT (supraventricular tachycardia) 03/22/2024 Overview (03/23/2024): SVT overnight 03/21, resolved after stopping epinephrine and with 2.5 mg metoprolol Cardiology notified and EKG obtained -started Amiodarone 03/23/2024 per cardiology recs S/P orthotopic heart transplant 03/18/2024 Overview (03/20/2024): S/p OHT 03/[address] Clifford - Wean epi and milrinone as tolerated - Line de-escalation as appropriate - MM analgesia - Bowel regimen - Monitor chest tube output - Diuresis today with 40 mg IV lasix (03/20) - DVT ppx with enoxaparin - PT/OT COPD (chronic obstructive pulmonary disease) Overview (03/19/2024): Monitor oxygenation and ventilation Wean oxygen requirements Bronchodilator therapy as needed Primary hypertension 03/13/2023 Aneurysm of ascending aorta without rupture 02/2110/22/2023 Overview (03/19/2024): Noted during intra-op ECHO Unrepaired Chronic pain disorder 06/29/2011 HLD (hyperlipidemia) 06/29/2011 Resolved Problems Problem Noted Date Diagnosed Date Resolved Date Urinary tract infection without hematuria 06/27/2024 06/30/2024 Aspiration pneumonia of right lower lobe 04/09/2024 05/08/2024 Transplant recipient 04/03/2024 024 Cardiac volume overload 03/23/202404/22 Overview (03/24/2024): Eval daily for diuresis needs Thrombocytopenia 03/20/2024 03/23/2024 Overview (03/20/2024): - Continue to monitor for signs of bleeding including development of new petechiae or oropharyngeal/gum bleeding. - Will transfuse for plts less than 50K Respiratory insufficiency 03/18/2024 Overview (03/20/2024): Arrived to ICU intubated from the OR Will slowly wean mechanical ventilation toward goal of extubation Extubated to HFNC 03/19 - Wean NC for sp02>92% Pre-heart transplant, listed 02/23/2024 03/20/2024 Pneumonia due to organism 12/25/2023 Aortic valve replaced 11/17/20232023 care home (current) use of anticoagulants 11/17/2023 03/20/2024 Pre-transplant evaluation fo r heart transplant 10/25/2023 05/08/2024 Chronic systolic CHF (conges tive heart failure) 08/26/2023 06/07/2024 Overview (03/19/2024): Underwent OHT 03/18/24 Wean vasoactive medications as tolerated Pacing wires in place witht backup pacing rate Chest pain 03/10/2023 10/11/2024 Encounters Date Type Department Care Team Description 05/02/2025 9:15 AM EDT Office Visit Medical Office Building Urology [address], [address] [place] [address] Aracely Pritchard MD Urinary retention (Primary Dx) 05/02/2025 Telephone [facility] [address] [place] [address] Mi Aguilar, PharmD 05/02/2025 Travel 04/23/2025 Telephone [facility] [address] [address] Kylie Gonzales, RN 04/19/2025 Orders Only [facility] Urology [address], [address] [place] [address] Aracely Pritchard MD 04/19/2025 Telephone [facility] Urology [address], [address] [place] [address] Aracely Pritchard MD HCN Clinical Concern/Question 04/17/2025 Telephone [facility] [address] [address] Kylie Gonzales, RN Results 04/17/2025 Results Follow-Up [facility] [address] [address] Kylie Gonzales, RN 04/17/2025 Orders Only [facility] [address] [address] Esequiel Gao 2025 Orders Only [facility] [address] [address] Kylie Gonzales, RN 04/10/2025 Telephone [facility] [address] [address] Kylie Gonzales, RN Results 04/10/2025 Orders Only [facility] [address] [address] Esequiel Gao 04/06/2025 Results Follow-Up [facility] [address] [address] Kylie Gonzales, RN 04/05/2025 Telephone [facility] [address] [address] Esequiel Gao Results (Lab pulled wrong orders and did not draw a tacro so he will go back next Wednesday ) 04/05/2025 Orders Only [facility] [address] [address] Esequiel Gao 03/19/2025 Orders Only [facility] [address] [address] Esequiel Gao 03/15/2025 9:45 AM EDT - 03/15/2025 10:45 AM EDT [facility] [address] [place] [address] Ab Hamilton MD Coronary angiography 03/15/2025 7:51 AM EDT - 03/15/2025 2:40 PM EDT Hospital Encounter [facility] [address] [place] [address] Ab Hamilton MD Status post transplant, heart (CMS/HCC); Long-term use of immunosuppressant medication Discharge Disposition: Home or Self Care 03/15/2025 Results Follow-Up [facility] [address] [phone] Kylie Gonzales, RN 03/15/2025 Travel 03/13/2025 Orders Only [facility] [address] [address] Kylie Gonzales, RN 03/12/2025 Orders Only [facility] [address] [address] Kylie Gonzales, usps letter carrier transplanted ([facility]/HCC) (Primary Dx) 03/08/2025 Orders Only [facility] [address] [address] Kylie Gonzales RN Status post transplant, heart (CMS/HCC) (Primary Dx); Long-term use of immunosuppressant medication 02/28/2025 Results Follow-Up [facility] [address] [place] [address] Eileen Lundy, RN Results 02/28/2025 Orders Only [facility] [address] [place] [address] Esequiel Gao 02/23/2025 Telephone [facility] [address] [address] Ayesha Nuñez Follow-up (Local labs) 02/23/2025 Telephone [facility] [address] [address] Kylie Gonzales, rehabilitation assistant Only 02/20/2025 Telephone [facility] [address] [address] Esequiel Gao Results (Reminder to go for protocol labs this week ) from Last 3 Months Immunizations Immunization Administration Dates Next Due Influenza Whole 08/26/2010 Influenza, injectable, quadrivalent, preservativ e free 11/04/2023,08/25/2014 Moderna COVID-19 Vaccine (Regional Wildlife Agent) 12+ years Pneumococcal 20-stacey Conj Vaccine 11/04/2023 Pneumococcal Polysaccharide PPV23 08/25/2014,03/2013 Tdap 11/25/2023 Zoster, Recombinant 11/27/2023 Family History Medical History Relation Name Comments Coronary artery disease Other 1 Heart disease Other 2 Anesthesia problems Neg Hx Malig Hyperthermia Neg Hx Relation Name Status Comments Other 1 Other 2 Social History Tobacco Use Types Packs/Day Years Used Date Smoking Tobacco: Former Cigarettes Q uit: 2010 Passive Smoke Exposure: Current Smokeless Tobacco: Never Tobacco Cessation:Counseling Given: Not Answered Comments:Quit 2009 Smoked 1 PPD for ~ 10 years [...] money to buy more. Never true 12/12/19 25 Within the past 12 months, t he [...] place to sleep or slept in a halfway (including now)? No 08/14/2024 PHQ-9 Answer Date [...] any time in the past 12 m [facility], were you homeless or living in a halfway (including now)? No 12/12/2024 CAGE ASSESSMENT Answer [...] drink first t beatris in the morning (EYE-WATERPROOFING MIXER) to steady your nerves or to get rid of a hangover? 0 12/25/2024 CAGE Questionnaire Score 0 025 Utilities Answer Date Recorded In the past 12 months has th e electric, gas, oil, or water company threatened to shut off services in your home? No 12/12/2024 PHQ-2A Answer Date Recorded Depression Risk 0 06/14/2024 Sex and Gender Information Value Date Recorded Sex Assigned at Male 05/26/2024 2:53 PM EDT Legal Sex Male 6:00 PM EDT Gender Identity Male 12/25/2024 7:21 AM EST Sexual Orientation Not on file Last Filed Vital Signs Vital Sign Reading Time Taken Comments Blood Pressure 129/78 05/02/2025 9:03 AM EDT Pulse 96 05/02/2025 9:03 AM EDT Temperature 36.6 C (97.9 F) 03/15/2025 11:00 AM EDT Respiratory Rate 26 03/15/2025 1:00 PM EDT Oxygen Saturation 97% 03/15/2025 1:00 PM EDT Inhaled Oxygen Concentration - - Weight 68.5 kg (151 lb) 05/02/2025 9:03 AM EDT Height 180.3 cm (5' 11 ) 03/15/2025 8:28 AM EDT Body Mass Index 21.06 03/15/2025 8:28 AM EDT Plan of Treatment Upcoming Encounters Date Type Department Care Team (Late st Contact Info) Description 06/20/2025 8:30 AM EDT Clinical Support [facility] [address] [place] [address] 06/20/2025 9:15 AM EDT Office Visit [facility] [address] [place] [address] 10/31/2025 9:15 AM EST Office Visit Medical Office Building Urology [address], [address] [place] [address] Aracely Pritchard MD [address] [place] [address] Health Maintenance Due Date Last Done Comments [facility]-Medicare Annual Wellness (AWV) 1960 [facility]-/Child/Adol SDOH Screenings 1960 Diabetes: Dental Exam 1970 CT Colonography 2005 Colonoscopy 2005 FIT-DNA 2005 FIT 2005 FOBT 2005 Sigmoidoscopy 2005 [facility]-Colorectal Cancer Screening 2005 [facility]-RSV Vaccine: 60+ Years or (1 - Risk 60-74 years 1-dose series) 2020 [id number] Vaccine (2 - Moderna risk series) 12/02/2021 11/04/2021 [facility]-Zoster Vaccines (2 of 2) 01/22/2024 11/27/2023 [facility]-Abdominal Aortic Aneurysm (AAA) Screening 2025 10/21/2022 [facility]- SDOH Screenings 06/11/2025 [facility]-Adult SDOH Screenings 06/11/2025 12/12/2024 [facility]-Influenza Vaccine (Season Ended) 2025 11/04/2023, 08/25/2014, 08/26/2010 [facility]-Diabetes: Hemoglobin A1C 09/12/2025, 09/06/2024, 06/14/2024, Additional history exists [facility]-Depression Screening 05/02/2026 025, 01/04/2025, 06/14/2024 [facility]-DTaP,Tdap,and Td Vaccines (2 - Td or Tdap) 11/25/2033 11/25/2023 [facility]-Pneumococcal Vaccine: 50+ Years Completed 11/04/2023, 08/25/2014, 07/27/2013 [facility]-Hepatitis C Screening Completed 2023, 03/17/2024, 03/17/2024, Additional history exists HPV Vaccines Aged Out No longer eligi ble based on patient's age to complete this topic [facility]-HIB Vaccines Aged Out No longer e ligible based on patient's age to complete this topic [facility]-Hepatitis A Vaccines Aged Out No longer eligible based on patient's age to complete this topic [facility]-IPV Vaccines Aged Out No longer e ligible based on patient's age to complete this topic [facility]-Rotavirus Vaccines Aged Out No lo nger eligible based on patient's age to complete this topic Procedures Procedure Name Priority Date/Time Associated Diagnosis Comments POC US BLADDER SCAN FOR VOLUME Routine 05/02/2025 9:06 AM EDT Urinary retention DISCHARGE PATIENT Routine 04/10/2025 6:1 7 AM EDT TACROLIMUS LEVEL Routine 04/10/2025 6:17 AM EDT MAGNESIUM, PLASMA Routine 04/10/2025 6:1 7 AM EDT COMPREHENSIVE METABOLIC PANEL, PLASMA Routine 04/10/2025 6:17 AM EDT CBC W/O DIFFERENTIAL Routine 04/10/2025 6:17 AM EDT CYTOMEGALOVIRUS (CMV) QUANTITATIVE PCR Routine 04/02/2025 6:17 AM EDT BASIC METABOLIC PANEL, PLASMA Routine 04/02/2025 6:10 AM EDT CBC W/O DIFFERENTIAL Routine 04/02/2025 6:10 AM EDT XR CHEST 2 VIEWS Routine 03/15/2025 1:34 PM EDT ECHO, ADULT TRANSTHORACIC COMPLETE Routine 03/15/2025 12:52 PM EDT HISTOPLASMA GALACTOMANNAN EIA, URINE (SO) Routine 03/15/2025 12:10 PM EDT CORONARY ANGIOGRAPHY Routine 03/15/2025 10:57 AM EDT Status post transplant, heart (CMS/HCC) Long-term use of immunosuppressant medication POCT CREATININE ISTAT UNSOLICITED RESULTS Routine 03/15/2025 8:40 AM EDT PROSTATE CANCER SCREEN, SERUM Routine 03/15/2025 8:32 AM EDT TACROLIMUS LEVEL Routine 03/15/2025 8:32 AM EDT ALLOSURE (SO) Routine 03/15/2025 8:32 AM EDT ALLOMAP MOLECULAR EXPRESSION (SO) Routine 03/15/2025 8:32 AM EDT CYTOMEGALOVIRUS (CMV) QUANTITATIVE PCR Routine 03/15/2025 8:32 AM EDT HLA DSA WITH CP CONSULT Routine 03/15/2025 8:32 AM EDT LIPID PROFILE, PLASMA Routine 03/15/2025 8:32 AM EDT HEMOGLOBIN A1C Routine 03/15/2025 8:32 AM EDT TSH Routine 03/15/2025 8:32 AM EDT MAGNESIUM, PLASMA Routine 03/15/2025 8:3 2 AM EDT N-TERMINAL PROBNP, PLASMA Routine 03/15/2025 8:32 AM EDT COMPREHENSIVE METABOLIC PANEL, PLASMA Routine 03/15/2025 8:32 AM EDT CBC WITH AUTO DIFFERENTIAL Routine 03/15/2025 8:32 AM EDT ALLOMAP MOLECULAR EXPRESSION (SO) Routine 03/15/2025 ALLOSURE (SO) Routine 03/15/2025 COMPREHENSIVE METABOLIC PANEL, PLASMA Routine 02/23/2025 9:32 AM EDT CBC W/O DIFFERENTIAL Routine 02/23/2025 9:32 AM EDT TACROLIMUS LEVEL Routine 02/23/2025 9:32 AM EDT CYTOMEGALOVIRUS (CMV) QUANTITATIVE PCR Routine 02/23/2025 HEPATITIS C VIRUS (HCV) QUANTITATIVE PCR Routine 04/26/2024 9:43 AM EDT Status post transplant, heart (CMS/HCC) Long-term use of immunosuppressant medication from Last 3 Months or Most Recently Relevant to Health Maintenance Results * POC US Bladder Volume (05/02/2025 9:06 AM EDT) Urine, Volume 26 mL IMAGING Anatomical Region Laterality Modality Other Aracely Pritchard MD IM POINT OF CARE ULTRASOUND Final Result * Tacrolimus (04/10/2025 6:17 AM EDT) Only the most recent of3 resultswithin the time period is included. External FK506 (Prograf, Tacrolimus) 8.7 Blood Venous blood specimen / Unknown 04/10/2025 6:17 AM EDT Historical Provider MD LAB BLOOD ORDERABLES Mariaa l Result * CBC W/O Differential (04/10/2025 6:17 AM EDT) Only the most recent of3 resultswithin the time period is included. External WBC 5.4 External Red Blood Cell (RBC) 3.66 External Hemoglobin (Hgb) 11.00 External Hematocrit (Hct) 33.4 External Platelet Count (Plt) 168 Blood Venous blood specimen / Unknown 04/10/2025 6:17 AM EDT Historical Provider MD LAB BLOOD ORDERABLES Mariaa l Result * Magnesium, Plasma (04/10/2025 6:17 AM EDT) Only the most recent of2 resultswithin the time period is included. External Magnesium (Mg) 1.7 Blood Venous blood specimen / Unknown 04/10/2025 6:17 AM EDT Result [facility] Provider LAB BLOOD ORDERABLES Mariaa l Result * Comprehensive Metabolic Panel, Plasma (04/10/2025 6:17 AM EDT) Only the most recent of3 resultswithin the time period is included. External Glucose 150 External BUN 67 External Creatinine Blood 1.9 mg/dL External Sodium (Na) 140 mEq/L External Potassium (K) 4.6 External Chloride (Cl) 105 External Carbon Dioxide (CO2) 26 External Calcium (Ca) 9.4 External Total Protein 7.4 External Albumin 4.0 g/dL External AST (SGOT) 29 External ALT (SGPT) 60 External Alkaline Phosphatase 89 External Bilirubin Total 0.3 mg/dL Blood Venous blood specimen / Unknown 04/10/2025 6:17 AM EDT Result [facility] Provider LAB BLOOD ORDERABLES Mariaa l Result * Discharge patient (04/10/2025 6:17 AM EDT) 04/10/2025 6:17 AM EDT Result [facility] Ab Hamilton MD ADT ORDERABLES Final Result * Cytomegalovirus (CMV) Quantitative PCR (04/02/2025 6:17 AM EDT) Only the most recent of3 resultswithin the time period is included. External Cmv DNAQuant IU/ML negative External Cmv DNA Quant Interpretation not detected Blood Venous blood specimen / Unknown 04/02/2025 6:17 AM EDT Result [facility] Provider LAB BLOOD ORDERABLES Mariaa l Result * Basic Metabolic Panel, Plasma (04/02/2025 6:10 AM EDT) External Glucose 145 External BUN 71 External Creatinine Blood 2.3 mg/dL External Sodium (Na) 138 mEq/L External Potassium (K) 4.7 External Chloride (Cl) 103 External Carbon Dioxide (CO2) 28 External Calcium (Ca) 9.9 Blood Venous blood specimen / Unknown 04/02/2025 6:10 AM EDT us Historical Provider LAB BLOOD ORDERABLES Mariaa l Result * XR Chest 2 Views (03/15/2025 1:34 PM EDT) Anatomical Region Laterality Modality Chest Digital Radiogra phy Impressions 03/15/2025 1:55 PM EDT No acute findings. CRITICAL RESULT: No. COMMUNICATION: Per this written report. By electronically signing this report, I, the attending physician, attest that I have personally reviewed the images/data for the above examination(s) and agree with the final edited report. Drafted by Can Landaverde MD on 03/15/2025 1:41 PM Final report signed by Jovanni Giang MD on 03/15/2025 1:55 PM Narrative 03/15/2025 1:55 PM EDT CLINICAL INDICATION: HEART TRANSPLANT STATUS TECHNIQUE: XR CHEST 2 VIEWS COMPARISON: SPECT CT performed December 20, 2024, chest radiograph performed December 10, 2024 FINDINGS: Stable cardiomediastinal silhouette. No new consolidation. No pneumothorax or pleural effusion. Procedure Note Jovanni Giang MD - 03/15/2025 CLINICAL INDICATION: HEART TRANSPLANT STATUS TECHNIQUE: XR CHEST 2 VIEWS COMPARISON: SPECT CT performed December 20, 2024, chest radiograph performed 2024 FINDINGS: Stable cardiomediastinal silhouette. No new consolidation. No pneumothoraxor pleural effusion. IMPRESSION: No acute findings. CRITICAL RESULT: No. COMMUNICATION: Per this written report. By electronically signing this report, I, the attending physician, attestthat I have personally reviewed the images/data for the aboveexamination(s) and agree with the final edited report. Drafted by Can Landaverde MD on 03/15/2025 1:41 PM Final report signed by Jovanni Giang MD on 03/15/2025 1:55 PM us Kev Abrams MD IMG XR PROCEDURES Final Re sult * ECHO, ADULT TRANSTHORACIC COMPLETE (03/15/2025 12:52 PM EDT) BSA 1.87 m2 АНДРЕЙ ISCV Height 180.3 АНДРЕЙ ISCV Weight 68.5 АНДРЕЙ ISCV IVSd 9 mm АНДРЕЙ ISCV LVIDd 46 mm АНДРЕЙ ISCV LVPWd 7 mm АНДРЕЙ ISCV LV MASS(C)D 116 g АНДРЕЙ ISCV LV RWT 0.35 mm АНДРЕЙ ISCV LVIDs 29 mm АНДРЕЙ ISCV Ao Root Diam 33 mm АНДРЕЙ ISCV LA dimension 47 mm АНДРЕЙ ISCV LAV(MOD-4ch) 78 mL АНДРЕЙ ISCV RA MOD 4Ch 53 mL АНДРЕЙ ISCV FREDERIC 28 mL/m2 АНДРЕЙ ISCV LV Lat e' Velocity 13.9 cm/s АНДРЕЙ ISCV LV Sept e' Luis Daniel 8.2 cm/s АНДРЕЙ ISCV RV s' Luis Daniel 10.1 cm/s АНДРЕЙ ISCV LAV(MOD-bp) Indexed 41 mL/m2 АНДРЕЙ ISCV LAV(MOD-2ch) 76 mL АНДРЕЙ ISCV RV base 38 mm АНДРЕЙ ISCV PA acc time 130 msec АНДРЕЙ ISCV mean PAP 21 mmHg АНДРЕЙ ISCV PA NE(ACCEL) 22.0 mmHg АНДРЕЙ ISCV PA acc slope 764.8 cm/s2 АНДРЕЙ ISCV LV EDV(MOD-2ch) 98 mL АНДРЕЙ ISCV LV ESV(MOD2ch) 41 mL АНДРЕЙ ISCV EF(MOD-sp2) 58 % АНДРЕЙ ISCV LVLs ap2 6.7 mm АНДРЕЙ ISCV LV EDV(MOD-4ch) 107 mL АНДРЕЙ ISCV EDV(MOD-bp) 103 mL АНДРЕЙ ISCV LV ESV(MOD4ch) 44 mL АНДРЕЙ ISCV EF(MOD-sp4) 59 % АНДРЕЙ ISCV ESV(MOD-bp) 43 mL АНДРЕЙ ISCV EF(MOD-bp) 59 % АНДРЕЙ ISCV MV E Vmax 106.0 cm/s АНДРЕЙ ISCV Lat E/e' 7.6 АНДРЕЙ ISCV Sep E/e' 12.9 АНДРЕЙ ISCV Avg E/e' 10.3 АНДРЕЙ ISCV Anatomical Region Laterality Modality Echocardiography Narrative 03/15/2025 1:36 PM EDT Left Ventricle: The left ventricle is normal size. There is normal left ventricular myocardial thickness and mass. The left ventricular systolic function is normal. The LVEF as measured by biplane volume is 59%. The left ventricular filling pressure is normal. No regional wall motion abnormalities are seen. Right Ventricle: The right ventricle is normal in size. The right ventricular systolic function is grossly normal. All cardiac valves were reasonably well interrogated with 2D imaging and/or Doppler assessment and no significant valve regurgitation or stenosis is seen. Pericardium: No pericardial effusion. Compared to the most recently available prior study, and allowing for differences in image quality and technique, there is less tricuspid regurgitation and small pericardial effusion is not seen. Left Ventricle The left ventricle is normal size. There is normal left ventricular myocardial thickness and mass. The left ventricular systolic function is normal. The LVEF as measured by biplane volume is 59%. Unable to assess diastolic function due to tachycardia. The left ventricular filling pressure is normal. No regional wall motion abnormalities are seen. Right Ventricle The right ventricle is normal in size. The right ventricular systolic function is grossly normal. Unable to estimate the right ventricular systolic pressure (RVSP) due to inadequate TR signal. Left Atrium The left atrium is enlarged due to cardiac transplantation. The interatrial septum is intact with no evidence for an atrial septal defect. Right Atrium The right atrium is dilated by visual assessment. IVC/SVC Based on the IVC size and respiratory variation, the estimated right atrial pressure is 3mmHg. Mitral Valve The mitral valve leaflets are normal in appearance with no evidence of mitral valve prolapse. There is trace mitral regurgitation. There is no mitral stenosis. Tricuspid Valve The tricuspid valve is normal in appearance. There is trace tricuspid regurgitation. There is no tricuspid stenosis. Aortic Valve The aortic valve appears to be trileaflet. There is no valvular regurgitation. There is no hemodynamically significant valvular aortic stenosis. Pulmonic Valve The pulmonic valve was not well visualized. There is no pulmonic regurgitation. There is no pulmonic stenosis. Pericardium No pericardial effusion. Great Vessels The aortic root is normal in size. The main pulmonary artery is normal in size. Study Details A complete transthoracic echocardiogram using two-dimensional (2D), m-mode, color and spectral flow Doppler imaging was performed. During the study the apical, parasternal, subcostal and suprasternal view was captured. Overall the study quality was adequate. Height: 180.3 cm. Weight: 68.5 kg. BSA: 1.87 m2. The heart rhythm during this exam was most suggestive of a sinus rhythm. Study Recommendation All cardiac valves were reasonably well interrogated with 2D imaging and/or Doppler assessment and no significant valve regurgitation or stenosis is seen. Compared to the most recently available prior study, and allowing for differences in image quality and technique, there is less tricuspid regurgitation and small pericardial effusion is not seen. us Kev Abrams MD CV ECHO PROCEDURES Final R esult * Histoplasma Galactomannan EIA, Urine (SO) (03/15/2025 12:10 PM EDT) Pathologist [facility] Histoplasma Galactomannan EIA, Urine <0.3 <0.3 ng/mL 03/16/2025 4:06 PM EDT VIRACOR (BEAKER) Comment: This test is used for the measurement of Histoplasma Galactomannan in urine samples. Patients with a value greater than or equal to 0.3 ng/mL are considered to be positive for Histoplasma Galactomannan. Values greater than 25 ng/mL are considered positive and above the limit of quantitation. However, all test results should be reviewed in light of other clinical data by the physician. Specimens should be repeated if the results are positive and inconsistent with clinical findings. Patients with a value less than 0.3 ng/mL are considered to be negative for Histoplasma Galactomannan. A negative result does not rule out the diagnosis of disease as the specimen may be drawn before detectable Galactomannan antigen is present. The clarus Histoplasma Galactomannan EIA was found to be cross-reactive with Paracoccidioides, Blastomyces, and some Ivet specimens. Positive tests should be confirmed in areas or patient groups where these organisms are endemic or a risk. Even though it was not tested in the clarus Histoplasma Galactomannan EIA, Talaromyces marneffei is known to cross-react with Histoplasma. The [facility]us Histoplasma Galactomannan EIA is not intended for monitoring therapy. Testing should not be performed as a screening procedure for the general population. The predictive value of a positive or negative result depends on the pretest likelihood of histoplasmosis disease being present. Testing should only be done when clinical evidence suggests the diagnosis of histoplasmosis disease. The clarus Histoplasma Galactomannan EIA is a product of [employer] and is labeled for in-vitro diagnostic use. This test has been registered with the FDA and is considered safe and effective for the detection of Histoplasma Galactomannan. Testing Performed at: [facility] [id number] [address], [address] [place] [address] Certified Legal Investigator: Noé Espinosa, PhD [facility] ([facility]) CLIA # [id number] FLAG Interpretation: A = Abnormal, H = High, L = Low Urine Urine specimen obtained by clean catch procedure / Unknown Non-blood Collection / Unknown 03/15/2025 12:10 PM EDT 03/15/2025 12:22 PM EDT Narrative WESLEY SAINI) - 03/16/2025 4:06 PM EDT Release to patient in [facility]->Immediate Ab Hamilton MD LAB REF LAB BLOOD AND FLUID ORD Final Result WESLEY SAINI) * CORONARY ANGIOGRAPHY (03/15/2025 10:57 AM EDT) Anatomical Region Laterality Modality Other Narrative 03/16/2025 12:56 PM EDT Conclusion: 1. 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 2. Normal coronary arteriography. Recommendations: 1. Results will be communicated to the heart transplant program. Procedure Details Informed consent obtained Time out conducted to confirm correct patient and procedure Right wrist prepared and draped, usual fashion Local anesthesia right wrist with 2% lidocaine Modified Seldinger technique, 21 Gauge Cook needle, right radial access with long 5F introducer, straightforward, heparin 5000 units and nitroglycerin 200 micrograms radial Selective left and right coronary arteriography using 5F Terumo Perry and JR4 catheter, standard technique, hand injections, variety of projections, isosmolar contrast material Ran catheter and right radial introducer removed, hemostasis achieved with TR Band 13 ml air Patient transferred back to the paint laboratory technician holding area in good condition. Coronary Findings Diagnostic Dominance: Right Left Main: Trifurcates. The left main appears normal. Left Anterior Descending: Gives rise to one large diagonal and one large septal branch and terminates a recurrent apical branch. There is a luminal irregularity at the origin of the diagonal branch. The septal rail flaw detector operator branch appears normal. The remainder of the LAD and its branches are normal. Ramus Intermedius: The ramus is large with two large branches. The ramus and branches appear normal. Left Circumflex: Gives rise to one large marginal branch. The terminal AV groove vessel is small. The circumflex and branches appear normal. Right Coronary Artery: Dominant for the inferior circulation, gives rise to two large RV marginal branches, a PDA, two moderate size PLBrs, and a terminal PLBr. The RCA and branches appear normal. Intervention No interventions have been documented. Hemodynamic Data Pressures Phase: Resting Aortic AO: 93/65 (78) mmHg us Kev Abrams MD CV CARDIAC CATH PROCEDURES Final Result * (ABNORMAL) POCT creatinine (03/15/2025 8:40 AM EDT) [facility] Creatinine, Point of Care 1.6(H) 0.7 - 1.2 mg/dL 03/15/2025 8:43 AM EDT [facility]ALTHCARE LAB POCT eGFR 48 mL/min/1. 73m*2 03/15/2025 8:43 AM EDT [facility] Card Hand ID Jovana Richey 03/15/2025 8:43 AM EDT [facility] Device ID [id number] 03/15/2025 8:43 AM EDT [facility] Comment 03/15/2025 8:43 AM EDT [facility] Comment:Testing performed on i-STAT at the point of care. Reported eGFRcr in mL/min/1.73m2 is based the CKD-EPI 2020 equation that does not use a race coefficient. Blood Venous blood specimen / Unknown 03/15/2025 8:40 AM EDT 03/15/2025 8:43 AM EDT us Ab Hamilton MD LAB POINT OF CARE TE ST DOCKED DEVICE UNSOLICITED RESULTS Final Result [facility] [address] [place] [id number] [facility] [address] [place] [address] * Allosure (SO) (03/15/2025 8:32 AM EDT) Only the most recent of2 resultswithin the time period is included. Scan Result See Scanned Result 03/19/2025 3:31 PM EDT CARE DX Blood Venipuncture / Unknown 03/15/2025 8:32 AM EDT 03/15/2025 8:48 AM EDT Kev Abrams MD LAB REF LAB BLOOD AND FLUI D ORD Final Result CARE DX * Allomap Molecular Expression (SO) (03/15/2025 8:32 AM EDT) Only the most recent of2 resultswithin the time period is included. ALLOMAP 38 03/19/2025 3:30 PM EDT CARE DX See Scanned Result SEE SCANNED REPORT 03/19/2025 3:30 PM EDT CARE DX Blood Venous blood specimen / Unknown Venipuncture / Unknown 03/15/2025 8:32 AM EDT 03/15/2025 8:48 AM EDT Kev Abrams MD LAB BLOOD ORDERABLES Final Result CARE DX * Prostate Cancer Screen, Serum (03/15/2025 8:32 AM EDT) Prostate Cancer Screen, Serum 3.68 0.00 - 4.50 ng/mL 03/15/2025 9:15 AM EDT [facility] Blood Venous blood specimen / Unknown Venipuncture / Unknown 03/15/2025 8:32 AM EDT 03/15/2025 8:39 AM EDT Narrative [facility] - 03/15/2025 9:15 AM EDT Performed by [employer] electrochemiluminescent immunoassay which is standardized against the PSA Danny Reference Standard (WHO 96/670). Results obtained with different test methods or kits cannot be used interchangeably. Kev Abrams MD LAB BLOOD ORDERABLES Final Result Performing Organization Address [facility] Co de Phone Number [facility] [address] [place] [address] * HLA Donor Specific Antibody with Consultation (03/15/2025 8:32 AM EDT) Blood Venous blood specimen / Unknown Venipuncture / Unknown 03/15/2025 8:32 AM EDT 03/15/2025 8:44 AM EDT Kev Abrams MD LAB BLOOD ORDERABLES Final Result Performing Organization Address [facility] de Phone Number [facility] [address] [place] [address], [place] * N-Terminal Probnp, Plasma (03/15/2025 8:32 AM EDT) N-Terminal, PROBNP, Plasma 203 0 - 899 pg/mL 03/15/2025 9:18 AM EDT [facility] Blood Venous blood specimen / Unknown Venipuncture / Unknown 03/15/2025 8:32 AM EDT 03/15/2025 8:40 AM EDT Kev Abrams MD LAB BLOOD ORDERABLES Final Result Performing Organization Address [facility] Co de Phone Number [facility] [address] [place] [address] * (ABNORMAL) CBC and Differential (03/15/2025 8:32 AM EDT) WBC Count 5.71 3.70 - 10.30 10*3/uL LAB HEMATOLOGY METHOD 03/15/2025 8:48 AM EDT [facility] RBC Count 3.18(L) 4.60 - 6.10 10*6/uL LAB HEMATOLOGY METHOD 03/15/2025 8:48 AM EDT [facility] HGB 9.7(L) 13.7 - 17.5 g/dL LAB HEMATOLOGY METHOD 03/15/2025 8:48 AM EDT [facility] HCT 30.5(L) 40.0 - 51.0 % LAB HEMATOLOGY METHOD 03/15/2025 8:48 AM EDT [facility] Platelet Count 166 155 - 369 10*3/uL LAB HEMATOLOGY METHOD 03/15/2025 8:48 AM EDT [facility] MCV 96 79 - 98 fL LAB HEMATOLOGY METHOD 03/15/2025 8:48 AM EDT [facility] MCH 30.5 26.0 - 32.0 pg LAB HEMATOLOGY METHOD 03/15/2025 8:48 AM EDT [facility] MCHC 31.8 30.7 - 35.5 g/dL LAB HEMATOLOGY METHOD 03/15/2025 8:48 AM EDT [facility] RDW 13.1 11.5 - 14.5 % LAB HEMATOLOGY METHOD 03/15/2025 8:48 AM EDT [facility] MPV 10.9 8.8 - 12.5 fL LAB HEMATOLOGY METHOD 03/15/2025 8:48 AM EDT [facility] nRBC 0.0 <=0.0 per 100 WBCs LAB HEMATOLOGY METHOD 03/15/2025 8:48 AM EDT [facility] Differential Type Automated LAB HEMATOLOGY METHOD 03/15/2025 8:48 AM EDT [facility] Neutrophils % 54 % LAB HEMATOLOGY METHOD 03/15/2025 8:48 AM EDT [facility] Lymphocytes % 31 % LAB HEMATOLOGY METHOD 03/15/2025 8:48 AM EDT [facility] Monocytes % 11 % LAB HEMATOLOGY METHOD 03/15/2025 8:48 AM EDT [facility] Eosinophils % 2 % LAB HEMATOLOGY METHOD 03/15/2025 8:48 AM EDT [facility] Basophils % 1 % LAB HEMATOLOGY METHOD 03/15/2025 8:48 AM EDT [facility] Immature Granulocytes % 1 % LAB HEMATOLOGY METHOD 03/15/2025 8:48 AM EDT [facility] Neutrophils Absolute 3.14 1.60 - 6.10 10*3/uL LAB HEMATOLOGY METHOD 03/15/2025 8:48 AM EDT [facility] Lymphocytes Absolute 1.78 1.20 - 3.90 10*3/uL LAB HEMATOLOGY METHOD 03/15/2025 8:48 AM EDT [facility] Monocytes Absolute 0.60 0.30 - 0.90 10*3/uL LAB HEMATOLOGY METHOD 03/15/2025 8:48 AM EDT [facility] Eosinophils Absolute 0.09 0.00 - 0.50 10*3/uL LAB HEMATOLOGY METHOD 03/15/2025 8:48 AM EDT [facility] Basophils Absolute 0.07 0.00 - 0.10 10*3/uL LAB HEMATOLOGY METHOD 03/15/2025 8:48 AM EDT [facility] Immature Granulocytes Absolute 0.03 0.00 - 0.06 10*3/uL LAB HEMATOLOGY METHOD 03/15/2025 8:48 AM EDT [facility] Blood Venous blood specimen / Unknown Venipuncture / Unknown 03/15/2025 8:32 AM EDT 03/15/2025 8:40 AM EDT Narrative [facility] - 03/15/2025 8:48 AM EDT Therapeutic decision making should be based on absolute values, rather than percentages. us Kev Abrams MD LAB BLOOD ORDERABLES Final Result Performing Organization Address City/[facility]/ZIP Co de Phone Number [facility] [address] [place] [address] * Thyroid Stimulating Hormone, Plasma (03/15/2025 8:32 AM EDT) Thyroid Stimulating Hormone, Plasma 2.18 0.40 - 4.20 uIU/mL 03/15/2025 9:18 AM EDT [facility] Blood Venous blood specimen / Unknown Venipuncture / Unknown 03/15/2025 8:32 AM EDT 03/15/2025 8:40 AM EDT Kev Abrams MD LAB BLOOD ORDERABLES Final Result Performing Organization Address City/[facility]/ZIP Co de Phone Number [facility] [address] [place] [address] * Hemoglobin A1c (03/15/2025 8:32 AM EDT) Hemoglobin A1c 4.2 <5.7 % 03/15/2025 10:42 AM EDT [facility] Blood Venous blood specimen / Unknown Venipuncture / Unknown 03/15/2025 8:32 AM EDT 03/15/2025 8:40 AM EDT Narrative [facility] - 03/15/2025 10:42 AM EDT HA1C Interpretive Data: Diagnosis of Diabetes: Diabetic > or = 6.5% Pre-diabetic 5.7 to 6.4% Non-diabetic < or = 5.6% Glycemic Targets for Type I and Type II Diabetics: Non- Adults <7.0% Adults <6.0% Children and Adolescents <7.5% Source: [place] [employer]. Standards of medical care in diabetes,2017. Diabetes Care.2017:40 (suppl 1):S1-S135. Kev Abrams MD LAB BLOOD ORDERABLES Final Result [facility] [address] [place] [address] * (ABNORMAL) Lipid Profile, Plasma (03/15/2025 8:32 AM EDT) Cholesterol, Plasma 165 <200 mg/dL 03/15/2025 9:18 AM EDT [facility] Comment: Cholesterol Reference Range (age >17 years): Desirable <200 mg/dL Borderline 200 to 239 mg/dL Undesirable >239 mg/dL HDL 26(L) >=40 mg/dL 03/15/2025 9:18 AM EDT [facility] Comment: HDL Cholesterol Reference Ranges (age >17 years): Female, acceptable > or = 50 mg/dL Male, acceptable > or = 40 mg/dL Triglycerides, Plasma 175(H) <150 mg/dL 03/15/2025 9:18 AM EDT [facility] Comment: Triglyceride Reference Range (age >17 years): Desirable: <150 mg/dL Borderline high: 150 to 199 mg/dL High: 200 to 499 mg/dL Very high: >499 mg/dL Increased risk of pancreatitis: >1000 mg/dL Cholesterol/HDL Ratio 6 03/15/2025 9:18 AM EDT [facility] LDL, Calculated 108(H) <100 mg/dL 9:18 AM EDT [facility] Comment: LDL Cholesterol Reference Range (age >17 years): Optimal: <100 mg/dL Near or above optimal: 100 - 129 mg/dL Borderline high: 130 - 159 mg/dL High: 160 - 189 mg/dL Very high: >189 mg/dL LDL Cholesterol Reference Range (age <18 years): Desirable: <110 mg/dL Borderline: 110 - 129 mg/dL Undesirable: >130 mg/dL LDL Cholesterol is calculated using the Underwood/NIH equation. Fasting greater than or equal to 12 hours? Yes 03/15/2025 9:18 AM EDT [facility] Blood Venous blood specimen / Unknown Venipuncture / Unknown 03/15/2025 8:32 AM EDT 03/15/2025 8:40 AM EDT us Kev Abrams MD LAB BLOOD ORDERABLES Final Result [facility] [address] [place] [address] * Hepatitis C Virus (HCV) Quantitative PCR (04/26/2024 9:43 AM EDT) Pathologist [facility] Hepatitis C Virus (HCV) Quantitative Interpretation Not Detected Not Detected . 04/27/2024 3:44 PM EDT [facility] Blood Venous blood specimen / Unknown Venipuncture / Unknown 04/26/2024 9:43 AM EDT 04/26/2024 9:45 AM EDT Narrative HEALTHCARE LAB - 04/27/2024 3:44 PM EDT The V[employer]as M2000 HCV test is a Real Time in vitro nucleic acid amplification test for the quantitation of Hepatitis C Viral (HCV) RNA in human serum in HCV-infected individuals. It is intended for use as an aid in the management of HCV-infected individuals undergoing anti-viral therapy. The dynamic range for this test is log10 = 1.08 to 8.00 and/or 12 to 100,000,000 IU/mL. The limit of detection (LOD) for this assay is 12 IU/mL and the limit of quantitation (LOQ) is 12 IU/mL. This assay is FDA approved for clinical use. us Kev Abrams MD LAB BLOOD ORDERABLES Final Result [facility] [address] [place] [address] from Last 3 Months or Most Recently Relevant to Health Maintenance Additional Health Concerns Infection Onset Date Last Indicated e. coli 06/26/2024 08/12/2024 Enteropathogenic E. coli (EPEC) 06/28/2024 06/28/2024 Insurance [facility] MEDICARE [employer] MEDICARE Advance Directives * Full Code (Latest Code Status on File) Date Activated Date Inactivated Comments 12/08/2024 11:24 AM 12/20/2024 4:09 PM Question Answer Comments Patient has decision-making capacity? Yes * Full Code Date Activated Date Inactivated Comments 08/12/2024 7:09 PM 08/17/2024 4:19 PM Question Answer Comments Patient has decision-making capacity? Yes * Full Code Date Activated Date Inactivated Comments 06/26/2024 4:24 PM 07/03/2024 4:06 PM Question Answer Comments Patient has decision-making capacity? Yes * Full Code Date Activated Date Inactivated Comments 05/26/2024 3:56 PM 05/29/2024 5:06 PM Question Answer Comments Patient has decision-making capacity? Yes * Full Code Date Activated Date Inactivated Comments 04/03/2024 6:00 PM 04/09/2024 6:52 PM Question Answer Comments Patient has decision-making capacity? Yes Care Teams Thrill Performer Relationship Specialty Start Date End Date Travis Perez MD [address] [place] [address] PCP - General Family Medicine 04/26/24 Gloria Alas, PharmD [address] [place] [address] Pharmacist Pharmacy 12/27/23
--- OUTSIDE RECORDS SUMMARY | 2025-05-22 09:28 | XMS_ITS | Encounter Summary ---
Author Organization Healthcare Address [address] [place] [address] Care Team Providers Care Fuel Management Handler Name Role Phone Gloria Alas PharmD Unavailable [phone] Travis Perez MD Primary Care Provider Rosa vailable Reason for Visit * Reason Comments Results Encounter Details Date Type Department Care Team (Late st Contact Info) Description 04/17/2025 Telephone [facility] [place] Raimundo [address] [facility] [address]st [address] [place] [address] Kylie Gonzales, RN [id number] [address] [place] [phone] Results Social History Tobacco Use Types Packs/Day Years Used Date Smoking Tobacco: Former Cigarettes Q uit: 2010 Passive Smoke Exposure: Current Smokeless Tobacco: Never Comments:Quit 2009 Smoked 1 PPD for ~ [...] Date Recorded Patient Health Questionnaire-2 Score 0 01/04/2025 Hunger Vital Sign Answer Date Recorded Within [...] place to sleep or slept in a senior care (including now)? No 08/14/2024 PHQ-9 Answer Date [...] any time in the past 12 m [facility], were you homeless or living in a senior care (including now)? 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 No changes. documented in this encounter Plan of Treatment Upcoming Encounters Date Type Department Care Team (Late st Contact Info) Description 06/20/2025 8:30 AM EDT Clinical Support [facility] [address] [place] [address] 06/20/2025 9:15 AM EDT Office Visit [facility] [place] Raimundo [address] [facility] [address]st [address] [place] [address] 10/31/2025 9:15 AM EST Office Visit Medical Office Building Urology [address] [facility] [place] [phone] Aracely Pritchard MD [address] [place] [address] [place] [address] documented as of this encounter Visit Diagnoses Not on filedocumented in this encounter Additional Health Concerns Infection Onset Date Last Indicated Resolved Time e. coli 06/26/2024 08/12/2024 Enteropathogenic E. coli (EPEC) 06/28/2024 Assessment Noted Time PHQ-9 Depression Total Score: 0 01/04/20 25 12:49 PM EST A fall risk assessment has been complete d for the patient 01/31/2025 10:05 AM EDT A Body Mass Index follow-up plan has been documented for the patient 03/15/2025 12:37 PM EDT documented as of this encounter Care Teams Fuel Management Handler Relationship Specialty Start Date End Date Travis Perez MD [address] [place] [address] PCP - General Family Medicine 04/26/24 Gloria Alas, PharmD [address] [place] [phone] Pharmacist Pharmacy 12/27/23 documented as of this encounter
--- OUTSIDE RECORDS SUMMARY | 2025-05-22 09:28 | XMS_ITS | Encounter Summary ---
Author Organization Healthcare Address [address] [place] [address] Care Team Providers Care Screen Printing Paster Name Role Phone Gloria Alas PharmD Unavailable [phone] Travis Perez MD Primary Care Provider Rosa vailable Reason for Visit * Reason Onset Date Comments HCN Clinical Concern/Question 04/19/2025 Encounter Details Date Type Department Care Team (Late st Contact Info) Description 04/19/2025 Telephone [facility] [address], [address] [place] [address] Aracely Pritchard MD [address] [place] [address] HCN Clinical Concern/Question Social History Tobacco Use Types Packs/Day Years [...] place to sleep or slept in a prison (including now)? No 08/14/2024 PHQ-9 Answer Date [...] any time in the past 12 m [facility], were you homeless or living in a prison (including now)? 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) to steady your nerves or to get [...] encounter Miscellaneous Notes * Telephone Encounter - Johnathon Dubois - 04/19/2025 12:37 PM EDT Called and spoke to the patient and explained to them about reach out to the pcp they stated they understood and no questions * Telephone Encounter - Luiza George - 04/19/2025 8:50 AM EDT Clinical Concern/Question Reason for Call: Patient asking to talk to Pritchard would not give details besides has questions Best contact number: [phone] (home) Optimal time of day to reach caller: ANYTIME Additional comments/information from caller: None Note: Please do not reply to this message. Follow-up communication and further actions as a result of this message need to be communicated with the patient directly, if the patient is not active onMyChart. If the patient is active on MyChart, they will receive notification of the communication/outcome via BetterDoctort. documented in this encounter Plan of Treatment Upcoming Encounters Date Type Department Care Team (Late st Contact Info) Description 06/20/2025 8:30 AM EDT Clinical Support [place] [facility] [address], [address] [place] [address] 06/20/2025 9:15 AM EDT Office Visit [facility] [address] [facility] 1st Floor [address] [place] [address] 10/31/2025 9:15 AM EST Office Visit Medical Office Building Urology [address] [facility], [address] [place] [address] Aracely Pritchard MD [address] [place] [address] documented as of this encounter Visit Diagnoses [...] documented as of this encounter Care Teams Screen Printing Paster Relationship Specialty Start Date End Date Travis Perez MD [address] [place] [phone] PCP - General Family Medicine 04/26/24 Gloria Alas, PharmD [address] [place] [phone] Pharmacist Pharmacy 12/27/23 documented as of this encounter
--- OUTSIDE RECORDS SUMMARY | 2025-05-22 09:28 | XMS_ITS | Encounter Summary ---
Author Organization Healthcare Address [address] [id number] Care Team Providers Care Stereo Map Plotter Operator Name Role Phone Gloria Alas PharmD Unavailable [phone] Travis Perez MD Primary Care Provider Rosa vailable Reason for Visit * Reason Comments Med Refill Encounter Details Date Type Department Care Team (Late st Contact Info) Description 09/20/2024 Refill [facility] [place] Raimundo [address] [facility] 1st Floor [address] [place] [address] Kev Abrams MD [address] [place] [address] Social History Tobacco Use Types Packs/Day Years Used Date Smoking Tobacco: Former Cigarettes Passive Smoke Exposure: Current Smokeless Tobacco: Never Alcohol Use Standard Drinks/Week Comments Never 0 (1 standard drink = 0.6 oz pur e alcohol) Humiliation, Afraid, Rape, and Kick questionnair e Answer Date Recorded Within the last year, have y ou been afraid of your partner or ex-partner? No 08/14/2024 Within the last year, have y ou been humiliated or emotionally abused in other ways by your partner or ex-partner? No Within the last year, have y ou been kicked, hit, slapped, or otherwise physically hurt by your partner or ex-partner? No 08/14/2024 Within the last year, have y ou been raped or forced to have any kind of sexual activity by your partner or ex-partner? No 08/14/2024 PHQ-2 Answer Date Recorded Patient Health Questionnaire-2 Score 0 09/21/2024 Hunger Vital Sign Answer Date Recorded Within the past 12 months, y ou worried that your food would run out before you got the money to buy more. Never true 08/14/20 24 Within the past 12 months, t he food you bought just didn't last and you didn't have money to get more. Never true 08/14/2024 PRAPARE - Transportation Answer Date Re corded In the past 12 months, has l ack of transportation kept you from medical appointments or from getting medications? No 07/24 In the past 12 months, has l ack of transportation kept you from meetings, work, or from getting things needed for daily living? No 08/14/2024 Housing Stability Vital Sign Answer Phillip e [...] place to sleep or slept in a custodial (including now)? No 08/14/2024 CAGE ASSESSMENT Answer Date Recorded Cage unable to access Not on file 06/26/2024 Cage max number of drinks Not on file 2023 Cage Beverages a week Not on file 06/26/2024 Have you ever felt you should CUT down on your d rinking? 0 06/26/2024 Have you been ANNOYED by people criticizing your drinking? 0 06/26/2024 Have you felt GUILTY about your drinking? 0 06/26/2024 Have you had a drink first t beatris in the morning (EYE-SURVEILLANCE AGENT) to steady your nerves or to get rid of a hangover? 0 06/26/2024 CAGE Questionnaire Score 0 024 Utilities Answer Date Recorded In the past 12 months has th e electric, gas, oil, or water company threatened to shut off services in your home? No 08/14/2024 PHQ-2A Answer Date Recorded Depression Risk 0 06/14/2024 Sex and Gender Information Value Date Recorded Sex Assigned at Male 05/26/2024 2:53 PM EDT Legal Sex Male 6:00 PM EDT Gender Identity Male 12/25/2024 7:21 AM EST Sexual Orientation Not on file documented as of this encounter Functional Status * Over the past 2 weeks, how often have you been bothered by any of the following problems? Question Answer Date of Assessment Author Little interest or pleasure in doing things Not at all 09/21/2024 8:56 AM EDT Radha Newberry Feeling down, depressed, or hopeless Not at all 09/21/2024 8:56 AM EDT Radha Newberry Patient Health Questionnaire -2 Score 0 09/21/2024 8:56 AM EDT Radha Newberry documented as of this encounter Miscellaneous Notes * Telephone Encounter - Kylie Gonzales, RN - 09/20/2024 9:44 AM EDT It doesn't show original sender but I'm denying it if it comes back to you for some reason documented in this encounter Plan of Treatment Upcoming Encounters Date Type Department Care Team (Late st Contact Info) Description 06/20/2025 8:30 AM EDT Clinical Support [place] [facility] [address], [address]nd [place] [address] 06/20/2025 9:15 AM EDT Office Visit [facility] [place] Raimundo [address] [place] [address] 10/31/2025 9:15 AM EST Office Visit Medical Office Building Urology [address] [facility], [address] [place] [phone] Aracely Pritchard MD [address] [place] [address] documented as of this encounter Visit Diagnoses Not on filedocumented in this encounter Additional Health Concerns Infection Onset Date Last Indicated Resolved Time e. coli 06/26/2024 08/12/2024 Enteropathogenic E. coli (EPEC) 06/28/2024 COVID-19 Rule-Out 12/08/2024 12/08/2024 12/08/2024 10:36 AM EST Respiratory Rule-Out 12/08/2024 12/08/2024 025 11:41 AM EST Assessment Noted Time A fall risk assessment has been complete d for the patient 09/20/2024 9:05 AM EDT A Body Mass Index follow-up plan has been documented for the patient 09/20/2024 11:10 AM EDT documented as of this encounter Care Teams Stereo Map Plotter Operator Relationship Specialty Start Date End Date Travis Perez MD [address] [place] [phone] PCP - General Family Medicine 04/26/24 Gloria Alas, PharmD [address] [place] [phone] Pharmacist Pharmacy 12/27/23 documented as of this encounter
--- OUTSIDE RECORDS SUMMARY | 2025-05-22 09:28 | XMS_ITS | Encounter Summary ---
Author Organization Healthcare Address [address] [id number] Care Team Providers Care Chief Green Officer Name Role Phone Gloria Alas PharmD Unavailable [phone] Travis Perez MD Primary Care Provider Rosa vailable Encounter Details Date Type Department Care Team (Late st Contact Info) Description 05/02/2025 Telephone [facility] [address] [place] [address] Mi Aguilar, PharmD Social History Tobacco Use Types Packs/Day Years [...] place to sleep or slept in a long term (including now)? No 08/14/2024 PHQ-9 Answer Date [...] any time in the past 12 m [facility], were you homeless or living in a long term (including now)? No 12/12/2024 CAGE ASSESSMENT Answer [...] drink first t beatris in the morning (EYE-HYDRAULIC CORRUGATING MACHINE OPERATOR) to steady your nerves or to get [...] hopeless Not at all 05/02/2025 9:05 AM EDT Kierra Nye Patient Health Questionnaire -2 Score 0 05/02/2025 9:05 AM EDT Kierra Nye * If you checked off any problems on this questionnaire so far, Question Answer Date of Assessment Author How difficult have these problems made it for you to do your work, take care of things at home, or get along with other people? Not difficult at all 05/02/2025 9:05 AM EDT Kierra Nye documented as of this encounter Miscellaneous Notes * Telephone Encounter - Mi Aguilar, PharmD - 05/02/2025 9:07 AM EDT Patient contacted by MTM team. Left voicemail for call back. Pharmacy: [facility] Platform: Outcomes TIP Additional information: In [place] but fills lisinopril at [facility] and gets it shipped---needs refill tip documented in this encounter Plan of Treatment Upcoming Encounters Date Type Department Care Team (Late st Contact Info) Description 06/20/2025 8:30 AM EDT Clinical Support [facility] [address], [address] [place] [address] 06/20/2025 9:15 AM EDT Office Visit [facility] [place] [facility] [address] [place] [address] 10/31/2025 9:15 AM EST Office Visit Medical Office Building Urology [address], [address] [place] [phone] Aracely Pritchard MD [address] [place] [address] documented as of this encounter Visit Diagnoses [...] documented as of this encounter Care Teams Chief Green Officer Relationship Specialty Start Date End Date Travis Perez MD [address] [place] [address] PCP - General Family Medicine 04/26/24 Gloria Alas, PharmD [address] [place] [address] Pharmacist Pharmacy 12/27/23 documented as of this encounter
--- OUTSIDE RECORDS SUMMARY | 2025-05-22 09:28 | XMS_ITS | Encounter Summary ---
Author Organization Healthcare Address [address] [place] [address] Care Team Providers Care Escrow Officer Name Role Phone Gloria Alas PharmD Unavailable [phone] Travis Perez MD Primary Care Provider Rosa vailable Encounter Details Date Type Department Care Team (Late st Contact Info) Description 04/19/2025 Orders Only [facility] [address], [address] [place] [address] Aracely Pritchard MD [address] [place] [address] Social History Tobacco Use Types Packs/Day Years [...] place to sleep or slept in a correction (including now)? No 08/14/2024 PHQ-9 Answer Date [...] any time in the past 12 m [facility], were you homeless or living in a correction (including now)? No 12/12/2024 CAGE ASSESSMENT Answer [...] drink first t beatris in the morning (EYE-MATERIAL CARRIER) to steady your nerves or to get [...] on file documented as of this encounter Plan of Treatment Upcoming Encounters Date Type Department Care Team (Late st Contact Info) Description 06/20/2025 8:30 AM EDT Clinical Support [place] [facility] [address], [address] [place] [address] 06/20/2025 9:15 AM EDT Office Visit [facility] [place] Raim[facility] [address] [place] [address] 10/31/2025 9:15 AM EST Office Visit Medical Office Building Urology [address] [facility], [address] [place] [address] Aracely Pritchard MD [address] [place] [address] documented as of this encounter Visit Diagnoses [...] documented as of this encounter Care Teams Escrow Officer Relationship Specialty Start Date End Date Travis Perez MD [address] [place] [address] PCP - General Family Medicine 04/26/24 Gloria Alas, PharmD [address] [place] [phone] Pharmacist Pharmacy 12/27/23 documented as of this encounter
--- OUTSIDE RECORDS SUMMARY | 2025-05-22 09:28 | XMS_ITS | Encounter Summary ---
Author Organization Healthcare Address [address] [id number] Care Team Providers Care Third Shift Lieutenant Name Role Phone Gloria Alas PharmD Unavailable [phone] Travis Perez MD Primary Care Provider Rosa vailable Encounter Details Date Type Department Care Team (Latest Contact Info) Description 05/02/2025 Travel Social History Tobacco Use Types Packs/Day Years [...] place to sleep or slept in a [place] (including now)? No 08/14/2024 PHQ-9 Answer Date [...] any time in the past 12 m [facility], were you homeless or living in a [place] health [place] facility (including now)? No 12/12/2024 CAGE ASSESSMENT Answer [...] drink first t beatris in the morning (EYE-GRADES 7 8 TUTOR) to steady your nerves or to get [...] Kierra Nye documented as of this encounter Plan of Treatment Upcoming Encounters Date Type Department Care Team (Late st Contact Info) Description 06/20/2025 8:30 AM EDT Clinical Support [place] [facility] [address], [address] [place] [address] 06/20/2025 9:15 AM EDT Office Visit [facility] [place] Raim[facility] [address] [place] [address] 10/31/2025 9:15 AM EST Office Visit Medical Office Building Urology [address] [facility], [address] [place] [address] Aracely Pritchard MD [address] [place] [address] documented as of this encounter Visit Diagnoses [...] documented as of this encounter Care Teams Third Shift Lieutenant Relationship Specialty Start Date End Date Travis Perez MD [address] [place] [phone] PCP - General Family Medicine 04/26/24 Gloria Alas, PharmD [address] [place] [phone] Pharmacist Pharmacy 12/27/23 documented as of this encounter
--- OUTSIDE RECORDS SUMMARY | 2025-05-22 09:28 | XMS_ITS | Encounter Summary ---
Author Organization Healthcare Address [address] [place] [address] Care Team Providers Care Supervisor Stone Name Role Phone Gloria Alas PharmD Unavailable [phone] Travis Perez MD Primary Care Provider Rosa vailable Encounter Details Date Type Department Care Team (Late st Contact Info) Description 04/23/2025 Telephone [facility] [place] [address] [facility] 1st Floor [address] [place] [address] Kylie Gonzales, RN [id number] [address] [phone] Social History Tobacco Use Types Packs/Day Years [...] place to sleep or slept in a half-way (including now)? No 08/14/2024 PHQ-9 Answer Date [...] any time in the past 12 m [facility], were you homeless or living in a half-way (including now)? No 12/12/2024 CAGE ASSESSMENT Answer [...] drink first t beatris in the morning (EYE-ARMORER TECHNICIAN) to steady your nerves or to get [...] Telephone Encounter - Kylie Gonzales RN - 04/23/2025 4:08 PM EDT Pt said that he was exposed to an STD by his ex girlfriend but he got tested and results were negative. No additional testing or F/U needed. documented in this encounter Plan of Treatment Upcoming Encounters Date Type Department Care Team (Late st Contact Info) Description 06/20/2025 8:30 AM EDT Clinical Support [place] [facility] [address], [address] [place] [address] 06/20/2025 9:15 AM EDT Office Visit [facility] [place] [facility] [address] [facility] 1st Floor [address] [place] [address] 10/31/2025 9:15 AM EST Office Visit Medical Office Building Urology [address] [facility], [address] [place] [phone] Aracely Pritchard MD [address] [place] [address] documented as of this encounter Visit Diagnoses Not on filedocumented in this encounter Additional Health Concerns Infection Onset Date Last Indicated Resolved Time e. coli 06/26/2024 08/12/2024 Enteropathogenic E. coli (EPEC) 06/28/2024 4 Assessment Noted Time PHQ-9 Depression Total Score: 0 01/04/20 25 12:49 PM EST A fall risk assessment has been complete d for the patient 01/31/2025 10:05 AM EDT A Body Mass Index follow-up plan has been documented for the patient 03/15/2025 12:37 PM EDT documented as of this encounter Care Teams Supervisor Stone Relationship Specialty Start Date End Date Travis Perez MD [address] [place] [phone] PCP - General Family Medicine 04/26/24 Gloria Alas, PharmD [address] [place] [phone] Pharmacist Pharmacy 12/27/23 documented as of this encounter
--- OUTSIDE RECORDS SUMMARY | 2025-05-22 09:28 | XMS_ITS | Encounter Summary ---
Author Organization [facility] Address [address] [place] [address] Care Team Providers Care Chair Finisher Name Role Phone Mariano Finn MD Primary Care Provider [phone] Encounter Details Date Type Department Care Team (Late st Contact Info) Description 06/16/2011 E-[facility] Cardiology [facility] [address] [facility] [address] [place] [phone] Fermin Shaw Jr, MD [address] [place] [address] Hyperlipidemia LDL goal < 100 (Primary Dx) Social History Tobacco Use Types Packs/Day Years Used Date Smoking Tobacco: Former Cigarettes 0.5 35 0 05/27/1976 - 05/27/2011 Smokeless Tobacco: Never Comments:Patient has medicat ion to help quit smoking but has not started yet Alcohol Use Standard Drinks/Week Comments Yes 0 (1 standard drink = 0.6 oz pur e alcohol) Very Social drinker Sex and Gender Information Value Date Recorded Sex Assigned at Not on file Legal Sex Male 4:48 PM EST Gender Identity Not on file Sexual Orientation Not on file 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
--- OUTSIDE RECORDS SUMMARY | 2025-05-22 09:29 | XMS_ITS | Encounter Summary ---
Author Organization Healthcare Address [address] [place] [address] Care Team Providers Care Audience Development Manager Name Role Phone Gloria Alas PharmD Unavailable [phone] Travis Perez MD Primary Care Provider Rosa vailable Encounter Details Date Type Department Care Team (Late st Contact Info) Description 2025 Orders Only [facility] [place] [address] [facility] 1st Floor [address] [place] [address] Kylie Gonzales, RN [id number] [address] [place] [phone] Social History Tobacco Use Types Packs/Day Years [...] place to sleep or slept in a intermediate (including now)? No 08/14/2024 PHQ-9 Answer Date [...] were you homeless or living in a intermediate (including now)? No 12/12/2024 CAGE ASSESSMENT Answer [...] drink first t beatris in the morning (EYE-RUBBER MOLD MAKER) to steady your nerves or to get rid of a hangover? 0 12/25/2024 CAGE Questionnaire Score 0 025 Utilities Answer Date Recorded In the past 12 months has e electric, gas, oil, or water company [...] Description 06/20/2025 8:30 AM EDT Clinical Support [place] [facility] [address], [address] [place] [address] 06/20/2025 9:15 AM EDT Office Visit [facility] [place] [facility] [address] [place] [address] 10/31/2025 9:15 AM EST Office Visit Medical Office Building Urology [address] [facility], [address] [place] [address] Aracely Pritchard MD [address] [facility] [address] [place] [address] documented as of this encounter Visit Diagnoses [...] documented as of this encounter Care Teams Audience Development Manager Relationship Specialty Start Date End Date Travis Perez MD [address] [place] [address] PCP - General Family Medicine 04/26/24 Gloria Alas, PharmD [address] [place] [phone] Pharmacist Pharmacy 12/27/23 documented as of this encounter
--- OUTSIDE RECORDS SUMMARY | 2025-05-22 09:29 | XMS_ITS | Encounter Summary ---
Author Organization [facility] Address [address] [place] [address] Care Team Providers Care Chief Clinical Officer Name Role Phone Gloria Alas PharmD Unavailable [phone] Travis Perez MD Primary Care Provider Rosa vailable Encounter Details Date Type Department Care Team (Late st Contact Info) Description 04/05/2025 Orders Only [facility] [place] [address] [facility] 1st Floor [address] [place] [phone] Esequiel Gao [facility] [address] [phone] Social History Tobacco Use Types Packs/Day Years [...] place to sleep or slept in a mcfp (including now)? No 08/14/2024 PHQ-9 Answer Date [...] any time in the past 12 m [facility], were you homeless or living in a mcfp (including now)? No 12/12/2024 CAGE ASSESSMENT Answer [...] drink first t beatris in the morning (EYE-DOCK LOADER) to steady your nerves or to get [...] Description 06/20/2025 8:30 AM EDT Clinical Support [facility] [address], [address]nd [place] [address] 06/20/2025 9:15 AM EDT Office Visit [facility] [place] [address]st [address] [place] [address] 10/31/2025 9:15 AM EST Office Visit Medical Office Building Urology [address] [facility], [address] [place] [address] Aracely Pritchard MD [address] [place] [address] [place] [address] documented as of this encounter Procedures Procedure Name Priority Date/Time Associated Diagnosis Comments CYTOMEGALOVIRUS (CMV) QUANTITATIVE PCR Routine 04/02/2025 6:17 AM EDT CBC W/O DIFFERENTIAL Routine 04/02/2025 6:10 AM EDT BASIC METABOLIC PANEL, PLASMA Routine 04/02/2025 6:10 AM EDT documented in this encounter Results * Cytomegalovirus (CMV) Quantitative PCR (04/02/2025 6:17 AM EDT) External Cmv DNAQuant IU/ML negative External Cmv DNA Quant Interpretation not detected Blood Venous blood specimen / Unknown 04/02/2025 6:17 AM EDT [facility] Provider LAB BLOOD ORDERABLES Mariaa l Result * Basic Metabolic Panel, Plasma (04/02/2025 6:10 AM EDT) External Glucose 145 External BUN 71 External Creatinine Blood 2.3 mg/dL External Sodium (Na) 138 mEq/L External Potassium (K) 4.7 External Chloride (Cl) 103 External Carbon Dioxide (CO2) 28 External Calcium (Ca) 9.9 Blood Venous blood specimen / Unknown 04/02/2025 6:10 AM EDT Result [facility] Provider LAB BLOOD ORDERABLES Mariaa l Result * CBC W/O Differential (04/02/2025 6:10 AM EDT) External WBC 6.1 External Red Blood Cell (RBC) 3.50 External Hemoglobin (Hgb) 10.40 External Hematocrit (Hct) 32.1 External Platelet Count (Plt) 159 Blood Venous blood specimen / Unknown 04/02/2025 6:10 AM EDT Result [facility] Provider LAB BLOOD ORDERABLES Mariaa l Result documented in this encounter Visit Diagnoses Not on filedocumented [...] as of this encounter Care Teams Chief Clinical Officer Relationship Specialty Start Date End Date Travis Perez MD [address] [place] [phone] PCP - General Family Medicine 04/26/24 Gloria Alas, PharmD [address] [place] [phone] Pharmacist Pharmacy 12/27/23 documented as of this encounter
--- OUTSIDE RECORDS SUMMARY | 2025-05-22 09:29 | XMS_ITS | Encounter Summary ---
Author Organization Healthcare Address [address] [place] [address] Care Team Providers Care Floor Cashier Name Role Phone Gloria Alas PharmD Unavailable [phone] Travis Perez MD Primary Care Provider Rosa vailable Reason for Visit * Reason Comments Results Encounter Details Date Type Department Care Team (Late st Contact Info) Description 04/10/2025 Telephone [facility] [place] [address] [facility] 1st Floor [address] [place] [address] Kylie Gonzales, RN [id number] [address] [phone] Results Social History Tobacco Use Types Packs/Day [...] any time in the past 12 m [facility], were you homeless or living in [...] first t beatris in the morning (EYE-CUT AND COVER LINE WORKER) to steady your nerves or to get [...] encounter Miscellaneous Notes * Telephone Encounter - Kev Abrams MD - 04/10/2025 8:59 PM EDT Thank You * Telephone Encounter - Kylie Gonzales RN - 04/10/2025 12:40 PM EDT Spoke with pt and he reported that he was taking bumex 2mg that wasn't prescribed because of 3lb weight gain. I told him to stop taking this as he Cr. Has bumped quite a bit but this now explains whythis happened. He will not take any more. Tacro still pending so labs not ready for review but whenavailable please note why cr is higher than baseline. documented in this encounter Plan of Treatment Upcoming Encounters Date Type Department Care Team (Late st Contact Info) Description 06/20/2025 8:30 AM EDT Clinical Support [facility] [address]nd [place] [address] 06/20/2025 9:15 AM EDT Office Visit [facility] [place] [address] [place] [address] 10/31/2025 9:15 AM EST Office Visit Medical Office Building Urology [address], [address] [place] [address] Aracely Pritchard MD [address] [place] [address] documented as of this encounter Visit Diagnoses [...] documented as of this encounter Care Teams Floor Cashier Relationship Specialty Start Date End Date Travis Perez MD [address] [place] [phone] PCP - General Family Medicine 04/26/24 Gloria Alas, PharmD [address] [place] [phone] Pharmacist Pharmacy 12/27/23 documented as of this encounter
--- OUTSIDE RECORDS SUMMARY | 2025-05-22 09:29 | XMS_ITS | Encounter Summary ---
Author Organization Healthcare Address [address] [place] [phone] Care Team Providers Care Extruding Department Supervisor Name Role Phone Pcp, No Primary Care Provider Unavailana e Cassidy Middleton PharmD Unavailable + Gloria Alas PharmD Unavailable [phone] Travis Perez MD Primary Care Provider Rosa vailable Encounter Details Date Type Department Care Team (Late st Contact Info) Description 12/27/2023 Lab Requisition [facility] [address] [place] [address] Prieto Gracia MD [address] [facility] [address] [place] [address] Encounter for general adult medical examination without abnormal findings Social History Tobacco Use Types Packs/Day Years Used Date Smoking Tobacco: Former Cigarettes Smokeless Tobacco: Never Alcohol Use Standard Drinks/Week Comments Never 0 (1 standard drink = 0.6 oz pur e alcohol) Humiliation, Afraid, Rape, and Kick questionnair e Answer Date Recorded Within the last year, have y ou been afraid of your partner or ex-partner? No 11/04/2023 Within the last year, have y ou been humiliated or emotionally abused in other ways by your partner or ex-partner? No Within the last year, have y ou been kicked, hit, slapped, or otherwise physically hurt by your partner or ex-partner? No 11/04/2023 Within the last year, have y ou been raped or forced to have any kind of sexual activity by your partner or ex-partner? No 11/04/2023 Hunger Vital Sign Answer Date Recorded Within the past 12 months, y ou worried that your food would run out before you got the money to buy more. Never true 11/04/20 23 Within the past 12 months, t he food you bought just didn't last and you didn't have money to get more. Never true 11/04/2023 PRAPARE - Transportation Answer Date Re corded In the past 12 months, has l ack of transportation kept you from medical appointments or from getting medications? No 10/22 In the past 12 months, has l ack of transportation kept you from meetings, work, or from getting things needed for daily living? No 11/04/2023 Housing Stability Vital Sign Answer Phillip e Recorded In the last 12 months, was t here a time when you were not able to pay the mortgage or rent on time? No 11/04/2023 In the last 12 months, how many places have you lived? 2 11/04/2023 In the last 12 months, was t here a time when you did not have a steady place to sleep or slept in a fdc (including now)? No 11/04/2023 CAGE ASSESSMENT Answer Date Recorded Cage unable to access Not on file 11/03/2023 Cage max number of drinks Not on file 2022 Cage Beverages a week Not on file 11/03/2023 Have you ever felt you should CUT down on your d rinking? 0 11/03/2023 Have you been ANNOYED by people criticizing your drinking? 0 11/03/2023 Have you felt GUILTY about your drinking? 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 0 11/03/2023 CAGE Questionnaire Score 0 023 Utilities Answer Date Recorded In the past 12 months has th e [employer], gas, oil, or water company threatened to shut off services in your home? No 11/04/2023 Sex and Gender Information Value Date Recorded [...] Clinical Support [place] [facility] [address] [place] [address] 06/20/2025 9:15 AM EDT Office Visit [facility] [place] [address] [place] [address] 10/31/2025 9:15 AM EST Office Visit Medical Office Building Urology [address] [facility], [address] [place] [address] Aracely Pritchard MD [address] [place] [address] documented as of this encounter Procedures Procedure Name Priority Date/Time Associated Diagnosis Comments MULTI DRUG RESISTANCE TEST Routine 12/27/2023 9:45 AM EST Encounter for general adult medical examination without abnormal findings documented in this encounter Results * Multi Drug Resistance Test (12/27/2023 9:45 AM EST) Culture No Multi Drug Resistant Organisms Isolated 12/28/2023 12:16 PM EST [facility]ALTH[facility] LAB Swab (Nares and Abbey Rectal) 12/27/2023 9:45 AM EST 12/27/2023 10:43 AM EST us Prieto Gracia MD LAB MICROBIOLOGY - GEN ERAL ORDERABLES Final Result [facility] [address] [place] [address] documented in this encounter Visit Diagnoses Diagnosis Encounter for general adult medical examination without abnormal findings documented in this encounter Additional Health Concerns Infection Onset Date Last Indicated Resolved Time COVID-19 Rule-Out 04/03/2024 04/03/2024 04/03/2024 3:37 PM EDT Respiratory Rule-Out 04/03/2024 04/03/20242 024 8:09 PM EDT Gastrointestinal Rule-Out 05/26/2024 05/27/2024 6:58 AM EDT C. difficile Rule-Out 05/26/2024 05/27/20242023 6:58 AM EDT COVID-19 Rule-Out 05/26/2024 05/26/2024 05/26/2024 10:15 PM EDT Respiratory Rule-Out 05/26/2024 05/26/2024 024 9:16 PM EDT Respiratory Rule-Out 06/26/2024 06/26/2024 024 2:30 PM EDT e. coli 06/26/2024 08/12/2024 C. difficile Rule-Out 06/28/2024 06/28/20242023 1:58 PM EDT Gastrointestinal Rule-Out 06/28/2024 06/28/2024 2:39 PM EDT Enteropathogenic E. coli (EPEC) 06/28/2024 COVID-19 Rule-Out 08/12/2024 08/12/2024 08/12/2024 9:19 PM EDT COVID-19 Rule-Out 12/08/2024 12/08/2024 12/08/2024 10:36 AM EST Respiratory Rule-Out 12/08/2024 12/08/2024 025 11:41 AM EST Assessment Noted Time A fall risk assessment has been complete d for the patient 10/22/2023 10:18 AM EST A Body Mass Index follow-up plan has been documented for the patient 12/28/2023 2:01 PM EST documented as of this encounter Care Teams Extruding Department Supervisor Relationship Specialty Start Date End Date Pcp, No [address] [place] [address] PCP - General Family Medicine 10/22/23 04/25/24 Travis Perez MD [address] [place] [address] PCP - General Family Medicine 04/26/24 Cassidy Middleton, PharmD [address] [place] [address] Pharmacist Pharmacy 12/27/23 06/25/24 Gloria Alas, PharmD [address] [place] [address] Pharmacist Pharmacy 12/27/23 documented as of this encounter
--- OUTSIDE RECORDS SUMMARY | 2025-05-22 09:29 | XMS_ITS | Clinical Summary ---
[facility] Organization [facility] Address [address] [place] [address] Care Team Providers Care Infrastructure Technician Name Role Phone Mariano Finn MD Primary Care Provider Allergies No known active allergies Medications aspirin 81 MG EC tablet Take 1 tablet by mouth daily Active Multiple Vitamins-Minera ls (MULTIVITAMIN MEN 50+ PO) Take 1 tablet by mouth daily Active valsartan (DIOVAN) 160 MG tablet Take 0.5 tablets by mouth at bedtime Active atorvastatin (LIPITOR) 40 MG tablet Take 1 tablet by mouth daily Active warfarin (COUMADIN) 5 MG tablet Take 1 tablet by mouth daily Only on wednesday Active warfarin (COUMADIN) 4 MG tablet Take 1 tablet by mouth in the morning and at bedtime Every day except Wednesday Active albuterol sulfate (PROAIR RESPICLICK) 108 (90 Base) MCG/ACT aerosol powder inhalation Inhale 90 mcg into the lungs every 6 hours as needed 2 puffs 2 Active midodrine (PROAMATINE) 5 MG tablet Take 1 tablet by mouth 3 times daily (with meals) 90 tablet 3 3 Active spironolactone (ALDACTONE) 25 MG tablet Take 0.5 tablets by mouth daily 30 tablet 3 3 Active furosemide (LASIX) 20 MG tablet Take 1 tablet by mouth daily 60 tablet 3 3 Active sacubitril-vals alie (ENTRESTO) 24-26 MG per tablet Take 0.5 tablets by mouth 2 times daily 60 tablet 3 3 Active metoprolol succinate (TOPROL XL) 25 MG extended release tablet Take 0.5 tablets by mouth daily 30 tablet 3 3 Active Active Problems Problem Noted Date Diagnosed Date Acute bronchitis 03/16/2023 Massive hemoptysis 03/16/2023 PAT (paroxysmal atrial tachycardia) 03/15/2023 Acute systolic heart failure 03/13/2023 ICD (implantable cardioverter-defibrillator) in place 03/13/2023 Primary hypertension 03/13/2023 Mitral valve insufficiency 03/13/2023 LBBB (left bundle branch block) 03/13/2023 Aneurysm of ascending aorta without rupture 02/21 S/P heart valve replacement with mechanical valv e 03/12/2023 On warfarin at home 03/12/2023 Hemoptysis 03/11/2023 Acute on chronic combined sy stolic and diastolic congestive heart failure 03/11/2023 Epistaxis 03/11/2023 Elevated INR 03/11/2023 Nasal mucosa dry 03/11/2023 Anticoagulated on Coumadin 03/11/2023 Chest pain 03/10/2023 AI (aortic insufficiency) 06/29/2011 CAD in [place] artery 06/29/2011 HLD (hyperlipidemia) 06/29/2011 Chronic pain disorder 06/29/2011 Cardiomyopathy 06/29/2011 Immunizations Immunization Administration Dates Next Due Influenza Whole 08/26/2010 Family History Medical History Relation Name Comments Early Brother Early Father Heart Attack Father Heart Disease Father Diabetes Maternal Grandfather No Known Problems Mother Relation Name Status Comments Brother Father (Age 55) [place] Maternal Grandfather Mother Paternal Uncle X 3 with [place] Social History Tobacco Use Types Packs/Day Years Used Date Smoking Tobacco: Former Cigarettes 1 35 0 02/25/1988 - 02/24/2023 Smokeless Tobacco: Never Tobacco Cessation:Counseling Given: Not Answered Comments:Used the patch off of this for 4 days Alcohol Use Standard Drinks/Week Comments Not Currently 0 (1 standard drink = 0.6 oz pur e alcohol) AUDIT-C Answer Date Recorded Q1: How often do you have a drink containing alcohol? Never 03/10/2023 Q2: How many drinks containi ng alcohol do you have on a typical day when you are drinking? Patient does not drink Q3: How often do you have si x or more drinks on one occasion? Never 03/10/2023 Interpersonal Safety Domain Source: IP Abuse Scr eening Answer Date Recorded How often does anyone, brenna erickson family and friends, physically hurt you? Not on file 03/10/2023 How often does anyone, brenna erickson family and friends, scream or curse at you? Not on file 03/10/2023 How often does anyone, brenna erickson family and friends, insult or talk down to you? Not on file 03/10/2023 How often does anyone, brenna erickson family and friends, threaten you with harm? 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 [employer] Not on file Not on file Not on file Last Filed Vital Signs Vital Sign Reading Time Taken Comments Blood Pressure 121/80 03/16/2023 12:39 PM EDT Pulse 77 03/16/2023 12:39 PM EDT Temperature 36.3 C (97.4 F) 03/16/2023 12:39 PM EDT Respiratory Rate 16 03/16/2023 12:39 PM EDT Oxygen Saturation 96% 03/16/2023 12:39 PM EDT Inhaled Oxygen Concentration - - Weight 75.5 kg (166 lb 6.4 oz) 03/16/2023 4:28 A M EDT Height 170.2 cm (5' 7 ) 03/10/2023 11:29 AM EDT Body Mass Index 26.06 03/10/2023 11:29 AM EDT Plan of Treatment Health Maintenance Due Date Last Done Comments Depression Screen 1972 HIV screen 1975 Hepatitis C screen 1978 DTaP/Tdap/Td vaccine (1 - Tdap) 1979 Pneumococcal 50+ years Vaccine (1 of 2 - PCV) 1979 Colonoscopy 2005 Colorectal Cancer Screen 2005 FIT/FOBT: Average risk 2005 Fecal-DNA (Cologuard): Average risk 2005 Sigmoidoscopy/CT colonography 2005 Shingles vaccine (1 of 2) 2010 A1C test (Diabetic or Prediabetic) 06/26/2012 06/26/2011 Respiratory Syncytial Virus (RSV) or age 60 yrs+ (1 - Risk 60-74 years 1-dose series) 2020 Annual Wellness Visit (Medicare) 10/18/2023 Lung Cancer Screening &/or Counseling 03/10/2024 03/10/2023 Lipids 03/12/2024 03/12/2023, 07/23, 06/26/2011, Additional history exists COVID-19 Vaccine ( season) 2024 AAA screen 2025 03/10/2023 Flu vaccine (#1) 06/22/2025 08/26/2010, , 07/31/2009, Additional history exists Hepatitis A vaccine Aged Out No longe r eligible based on patient's age to complete this topic Hepatitis B vaccine Aged Out No longe r eligible based on patient's age to complete this topic Hib vaccine Aged Out No longer eligi ble based on patient's age to complete this topic Meningococcal (ACWY) vaccine Aged Out No longer eligible based on patient's age to complete this topic Meningococcal B vaccine Aged Out No l onger eligible based on patient's age to complete this topic Polio vaccine Aged Out No longer elig ible based on patient's age to complete this topic Procedures Procedure Name Priority Date/Time Associated Diagnosis Comments LIPID, FASTING Routine 03/12/2023 5:00 AM EDT CTA ABDOMEN PELVIS W CONTRAST STAT 03/10/2023 12:03 PM EDT CTA CHEST W WO CONTRAST STAT 03/10/2023 12:02 PM EDT HEMOGLOBIN A1C STAT 06/26/2011 9:17 AM EDT from Last 3 Months or Most Recently Relevant to Health Maintenance Results * (ABNORMAL) Lipid, Fasting (03/12/2023 5:00 AM EDT) Cholesterol, Fasting 323(H) 0 - 199 mg/dL 03/12/2023 11:55 PM EDT [facility] Triglyceride, Fasting 163(H) 0 - 150 mg/dL 03/12/2023 11:55 PM EDT [facility] HDL 40 40 - 60 mg/dL 03/12/2023 11:55 PM EDT [facility] LDL Calculated 250(H) <100 mg/dL 03/12/2023 11:55 PM EDT [facility] VLDL Cholesterol Calculated 33 Not Established mg/dL 03/12/2023 11:55 PM EDT [facility] BLOOD SPECIMEN / Unknown 03/12/2023 5:00 AM EDT 03/12/2023 5:13 PM EDT Narrative [facility] - 03/13/2023 12:13 AM EDT Collection has been rescheduled by TRACIE at 03/12/2023 15:13 Reason: Add on Darnell Mora MD CHEMISTRY ORDERABLES Final Result [facility] [address] [place] [address], [facility] [phone] * CTA ABDOMEN PELVIS W CONTRAST (03/10/2023 12:03 PM EDT) Anatomical Region Laterality Modality Abdomen, Pelvis, Hip Computed To mography 03/10/2023 1:20 PM EDT Impressions 03/10/2023 1:33 PM EDT 1. No acute finding to correlate to symptoms of chest pain. 2. Chronic dilation of the ascending thoracic aorta in a patient with prior surgical change of AVR. 3. Atherosclerotic changes with scattered areas of calcification throughout the aorta and branching vessels as described above. No significant stenosis. 4. Lungs are clear with no acute pulmonary finding. 5. No acute abnormality in the abdomen or pelvis. 6. Age indeterminate T8 compression fracture, suspected to be remote. Narrative 03/10/2023 1:33 PM EDT EXAMINATION: CTA OF THE ABDOMEN AND PELVIS WITH CONTRAST; CTA OF THE CHEST WITH AND WITHOUT CONTRAST 03/10/2023 11:53 am; 03/10/2023 11:56 am: TECHNIQUE: CTA of the abdomen and pelvis was performed with the administration of intravenous contrast. Multiplanar reformatted images are provided for review. MIP images are provided for review. Automated exposure control, iterative reconstruction, and/or weight based adjustment of the mA/kV was utilized to reduce the radiation dose to as low as reasonably achievable.; CTA of the chest was performed before and after the administration of intravenous contrast. Multiplanar reformatted images are provided for review. MIP images are provided for review. Automated exposure control, iterative reconstruction, and/or weight based adjustment of the mA/kV was utilized to reduce the radiation dose to as low as reasonably achievable. 3-D reformatted images were performed on an independent workstation. COMPARISON: None. HISTORY: ORDERING SYSTEM PROVIDED HISTORY: h/o aa, hemoptysis TECHNOLOGIST PROVIDED HISTORY: Reason for exam:->h/o aa, hemoptysis Reason for Exam: Hemoptysis, h/o AA ; ORDERING SYSTEM PROVIDED HISTORY: cp TECHNOLOGIST PROVIDED HISTORY: Reason for exam:->cp Reason for Exam: Hemoptysis FINDINGS: CTA: There is prior surgical change of AVR with diffuse dilation of the ascending thoracic aorta measuring up to 4.7 cm at the mid ascending portion. Normal caliber of the arch and descending thoracic aorta as well as of the abdominal aorta. No significant stenosis of the innominate artery or the bilateral carotid or subclavian arteries in the chest. Diffuse atherosclerotic calcification of the splenic artery. Celiac artery and hepatic artery are patent. Scattered areas of atherosclerotic change in the SMA without significant stenosis. Less than 50% stenosis of the right renal artery. Left renal artery is patent. Advanced atherosclerotic calcification of the common iliac arteries with stenosis less than 50%. Scattered calcification of the internal and external iliac arteries and the visualized femoral arteries, again without significant stenosis. Chest: Mediastinum: The heart is enlarged. Prior surgical change of CABG. Pacemaker/ICD on the left. Thyroid and esophagus normal. Several calcified mediastinal lymph nodes. Lungs/pleura: Airways are patent. No pleural fluid is present. No pneumothorax. Lungs are well expanded and clear. Soft Tissues/Bones: Age-indeterminate compression fracture to the superior endplate of T8 with minimal loss of height. Mild kyphosis. 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 Remote 8th rib fracture also noted. Abdomen/Pelvis: Organs: The liver, gallbladder, biliary ducts, pancreas and spleen are normal. Kidneys and adrenal glands are normal. GI/Bowel: The stomach, duodenum and small bowel are normal. A normal appendix is visualized. The colon is normal. Pelvis: The bladder is unremarkable. Normal prostate. Peritoneum/Retroperitoneum: The aorta tapers normally. No lymph node enlargement. Bones/Soft Tissues: No significant skeletal abnormalities. Procedure Note Kiran Valentin IV, MD - 03/10/2023 EXAMINATION: CTA OF THE ABDOMEN AND PELVIS WITH CONTRAST; CTA OF THE CHEST WITH AND WITHOUT CONTRAST 03/10/2023 11:53 am; 03/10/2023 11:56 am: TECHNIQUE: CTA of the abdomen and pelvis was performed with the administration of intravenous contrast. Multiplanar reformatted images are provided forreview. MIP images are provided for review. Automated exposure control,iterative reconstruction, and/or weight based adjustment of the mA/kV was utilizedto reduce the radiation dose to as low as reasonably achievable.; CTA ofthe chest was performed before and after the administration of intravenous contrast. Multiplanar reformatted images are provided for review. MIP images are provided for review. Automated exposure control, iterative reconstruction, and/or weight based adjustment of the mA/kV was utilizedto reduce the radiation dose to as low as reasonably achievable. 3-Dreformatted images were performed on an independent workstation. COMPARISON: None. HISTORY: ORDERING SYSTEM PROVIDED HISTORY: h/o aa, hemoptysis TECHNOLOGIST PROVIDED HISTORY: Reason for exam:->h/o aa, hemoptysis Reason for Exam: Hemoptysis, h/o AA ; ORDERING SYSTEM PROVIDED HISTORY:cp TECHNOLOGIST PROVIDED HISTORY: Reason for exam:->cp Reason for Exam: Hemoptysis FINDINGS: CTA: There is prior surgical change of AVR with diffuse dilation of theascending thoracic aorta measuring up to 4.7 cm at the mid ascending portion.Normal caliber of the arch and descending thoracic aorta as well as of theabdominal aorta. No significant stenosis of the innominate artery or the bilateral carotidor subclavian arteries in the chest. Diffuse atherosclerotic calcificationof the splenic artery. Celiac artery and hepatic artery are patent.Scattered areas of atherosclerotic change in the SMA without significant stenosis. Less than 50% stenosis of the right renal artery. Left renal artery is patent. Advanced atherosclerotic calcification of the common iliacarteries with stenosis less than 50%. Scattered calcification of the internaland external iliac arteries and the visualized femoral arteries, againwithout significant stenosis. Chest: Mediastinum: The heart is enlarged. Prior surgical change of CABG. Pacemaker/ICD on the left. Thyroid and esophagus normal. Severalcalcified mediastinal lymph nodes. Lungs/pleura: Airways are patent. No pleural fluid is present. No pneumothorax. Lungs are well expanded and clear. Soft Tissues/Bones: Age-indeterminate compression fracture to thesuperior endplate of T8 with minimal loss of height. Mild kyphosis. 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 [id number] rib fracture also noted. Abdomen/Pelvis: Organs: The liver, gallbladder, biliary ducts, pancreas and spleen are normal. Kidneys and adrenal glands are normal. GI/Bowel: The stomach, duodenum and small bowel are normal. A normalappendix is visualized. The colon is normal. Pelvis: The bladder is unremarkable. Normal prostate. Peritoneum/Retroperitoneum: The aorta tapers normally. No lymph node enlargement. Bones/Soft Tissues: No significant skeletal abnormalities. IMPRESSION: 1. No acute finding to correlate to symptoms of chest pain. 2. Chronic dilation of the ascending thoracic aorta in a patient withprior surgical change of AVR. 3. Atherosclerotic changes with scattered areas of calcificationthroughout the aorta and branching vessels as described above. No significantstenosis. 4. Lungs are clear with no acute pulmonary finding. 5. No acute abnormality in the abdomen or pelvis. 6. Age indeterminate T8 compression fracture, suspected to be remote. us Khloe Henriquez PA-C IMEm[facility] CT ORDERABLES Fi nal Result * CTA CHEST W WO CONTRAST (03/10/2023 12:02 PM EDT) Anatomical Region Laterality Modality Chest, Vascular Computed Tomogra phy 03/10/2023 1:20 PM EDT Impressions 03/10/2023 1:33 PM EDT 1. No acute finding to correlate to symptoms of chest pain. 2. Chronic dilation of the ascending thoracic aorta in a patient with prior surgical change of AVR. 3. Atherosclerotic changes with scattered areas of calcification throughout the aorta and branching vessels as described above. No significant stenosis. 4. Lungs are clear with no acute pulmonary finding. 5. No acute abnormality in the abdomen or pelvis. 6. Age indeterminate T8 compression fracture, suspected to be remote. Narrative 03/10/2023 1:33 PM EDT EXAMINATION: CTA OF THE ABDOMEN AND PELVIS WITH CONTRAST; CTA OF THE CHEST WITH AND WITHOUT CONTRAST 03/10/2023 11:53 am; 03/10/2023 11:56 am: TECHNIQUE: CTA of the abdomen and pelvis was performed with the administration of intravenous contrast. Multiplanar reformatted images are provided for review. MIP images are provided for review. Automated exposure control, iterative reconstruction, and/or weight based adjustment of the mA/kV was utilized to reduce the radiation dose to as low as reasonably achievable.; CTA of the chest was performed before and after the administration of intravenous contrast. Multiplanar reformatted images are provided for review. MIP images are provided for review. Automated exposure control, iterative reconstruction, and/or weight based adjustment of the mA/kV was utilized to reduce the radiation dose to as low as reasonably achievable. 3-D reformatted images were performed on an independent workstation. COMPARISON: None. HISTORY: ORDERING SYSTEM PROVIDED HISTORY: h/o aa, hemoptysis TECHNOLOGIST PROVIDED HISTORY: Reason for exam:->h/o aa, hemoptysis Reason for Exam: Hemoptysis, h/o AA ; ORDERING SYSTEM PROVIDED HISTORY: cp TECHNOLOGIST PROVIDED HISTORY: Reason for exam:->cp Reason for Exam: Hemoptysis FINDINGS: CTA: There is prior surgical change of AVR with diffuse dilation of the ascending thoracic aorta measuring up to 4.7 cm at the mid ascending portion. Normal caliber of the arch and descending thoracic aorta as well as of the abdominal aorta. No significant stenosis of the innominate artery or the bilateral carotid or subclavian arteries in the chest. Diffuse atherosclerotic calcification of the splenic artery. Celiac artery and hepatic artery are patent. Scattered areas of atherosclerotic change in the SMA without significant stenosis. Less than 50% stenosis of the right renal artery. Left renal artery is patent. Advanced atherosclerotic calcification of the common iliac arteries with stenosis less than 50%. Scattered calcification of the internal and external iliac arteries and the visualized femoral arteries, again without significant stenosis. Chest: Mediastinum: The heart is enlarged. Prior surgical change of CABG. Pacemaker/ICD on the left. Thyroid and esophagus normal. Several calcified mediastinal lymph nodes. Lungs/pleura: Airways are patent. No pleural fluid is present. No pneumothorax. Lungs are well expanded and clear. Soft Tissues/Bones: Age-indeterminate compression fracture to the superior endplate of T8 with minimal loss of height. Mild kyphosis. 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 Remote 8th rib fracture also noted. Abdomen/Pelvis: Organs: The liver, gallbladder, biliary ducts, pancreas and spleen are normal. Kidneys and adrenal glands are normal. GI/Bowel: The stomach, duodenum and small bowel are normal. A normal appendix is visualized. The colon is normal. Pelvis: The bladder is unremarkable. Normal prostate. Peritoneum/Retroperitoneum: The aorta tapers normally. No lymph node enlargement. Bones/Soft Tissues: No significant skeletal abnormalities. Procedure Note Kiran Valentin IV, MD - 03/10/2023 EXAMINATION: CTA OF THE ABDOMEN AND PELVIS WITH CONTRAST; CTA OF THE CHEST WITH AND WITHOUT CONTRAST 03/10/2023 11:53 am; 03/10/2023 11:56 am: TECHNIQUE: CTA of the abdomen and pelvis was performed with the administration of intravenous contrast. Multiplanar reformatted images are provided forreview. MIP images are provided for review. Automated exposure control,iterative reconstruction, and/or weight based adjustment of the mA/kV was utilizedto reduce the radiation dose to as low as reasonably achievable.; CTA ofthe chest was performed before and after the administration of intravenous contrast. Multiplanar reformatted images are provided for review. MIP images are provided for review. Automated exposure control, iterative reconstruction, and/or weight based adjustment of the mA/kV was utilizedto reduce the radiation dose to as low as reasonably achievable. 3-Dreformatted images were performed on an independent workstation. COMPARISON: None. HISTORY: ORDERING SYSTEM PROVIDED HISTORY: h/o aa, hemoptysis TECHNOLOGIST PROVIDED HISTORY: Reason for exam:->h/o aa, hemoptysis Reason for Exam: Hemoptysis, h/o AA ; ORDERING SYSTEM PROVIDED HISTORY:cp TECHNOLOGIST PROVIDED HISTORY: Reason for exam:->cp Reason for Exam: Hemoptysis FINDINGS: CTA: There is prior surgical change of AVR with diffuse dilation of theascending thoracic aorta measuring up to 4.7 cm at the mid ascending portion.Normal caliber of the arch and descending thoracic aorta as well as of theabdominal aorta. No significant stenosis of the innominate artery or the bilateral carotidor subclavian arteries in the chest. Diffuse atherosclerotic calcificationof the splenic artery. Celiac artery and hepatic artery are patent.Scattered areas of atherosclerotic change in the SMA without significant stenosis. Less than 50% stenosis of the right renal artery. Left renal artery is patent. Advanced atherosclerotic calcification of the common iliacarteries with stenosis less than 50%. Scattered calcification of the internaland external iliac arteries and the visualized femoral arteries, againwithout significant stenosis. Chest: Mediastinum: The heart is enlarged. Prior surgical change of CABG. Pacemaker/ICD on the left. Thyroid and esophagus normal. Severalcalcified mediastinal lymph nodes. Lungs/pleura: Airways are patent. No pleural fluid is present. No pneumothorax. Lungs are well expanded and clear. Soft Tissues/Bones: Age-indeterminate compression fracture to thesuperior endplate of T8 with minimal loss of height. Mild kyphosis. 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 [id number] rib fracture also noted. Abdomen/Pelvis: Organs: The liver, gallbladder, biliary ducts, pancreas and spleen are normal. Kidneys and adrenal glands are normal. GI/Bowel: The stomach, duodenum and small bowel are normal. A normalappendix is visualized. The colon is normal. Pelvis: The bladder is unremarkable. Normal prostate. Peritoneum/Retroperitoneum: The aorta tapers normally. No lymph node enlargement. Bones/Soft Tissues: No significant skeletal abnormalities. IMPRESSION: 1. No acute finding to correlate to symptoms of chest pain. 2. Chronic dilation of the ascending thoracic aorta in a patient withprior surgical change of AVR. 3. Atherosclerotic changes with scattered areas of calcificationthroughout the aorta and branching vessels as described above. No significantstenosis. 4. Lungs are clear with no acute pulmonary finding. 5. No acute abnormality in the abdomen or pelvis. 6. Age indeterminate T8 compression fracture, suspected to be remote. Khloe Henriquez PA-C IMG CT ORDERABLES Fi nal Result * Hemoglobin A1c (06/26/2011 9:17 AM EDT) A1c 6.0 4.0 - 6.0 Estimated Avg Glucose 125.5 Est. Average Glucose mg/dl BLOOD SPECIMEN / Unknown 06/26/2011 9:17 AM EDT 06/26/2011 9:24 AM EDT us Darnell Adamson MD CHEMISTRY ORDERABLES Final Res ult from Last 3 Months or Most Recently Relevant to Health Maintenance Insurance MEDICARE IN [facility] Advance Directives Documents on File Type Date Recorded Patient [facility] Administrator Expl anation ACP-Advance Directive 03/18/2023 5:06 AM * Full Code (Latest Code Status on File) Date Activated Date Inactivated Comments 03/10/2023 3:44 PM 03/16/2023 4:41 PM * Full Code Date Activated Date Inactivated Comments 06/29/2011 11:25 AM 07/04/2011 3:27 PM Healthcare Agents on File Name Relationship Healthcare Agent Relationshi p Communication Moraima Lata Girlfriend Primary Decision Maker Nathalie Zaidi Child Secondary Decision Maker Care Teams Infrastructure Technician Relationship Specialty Start Date End Date Mariano Finn MD PCP - General 01/13/12
--- OUTSIDE RECORDS SUMMARY | 2025-05-22 09:29 | XMS_ITS | Encounter Summary ---
Author Organization Healthcare Address [address] [place] [address] Care Team Providers Care Specialized Developer Name Role Phone Gloria Alas PharmD Unavailable [phone] Travis Perez MD Primary Care Provider Rosa vailable Encounter Details Date Type Department Care Team (Late st Contact Info) Description 04/06/2025 Results Follow-Up [facility] [place] [address] [facility] 1st Floor [address] [place] [address] Kylie Gonzales, RN [id number] [address] [id number] Social History Tobacco Use Types Packs/Day Years [...] in a custodial (including now)? No 08/14/2024 PHQ-9 Answer Date [...] any time in the past 12 m [facility], were you homeless or living in a custodial (including now)? No 12/12/2024 CAGE ASSESSMENT Answer [...] drink first t beatris in the morning (EYE-CHAMBER WALKER) to steady your nerves or to get [...] as of this encounter Miscellaneous Notes * Result Encounter Note - Kylie Gonzales RN - 04/06/2025 12:20 PM EDT He went for tacro recheck. Labs didn't draw this so he is going back Wednesday. Pt is now out of town and we received cmp they geri with notable bump in creatinine. documented in this encounter Plan of Treatment Upcoming Encounters Date Type Department Care Team (Late st Contact Info) Description 06/20/2025 8:30 AM EDT Clinical Support [facility] [address], 2nd [place] [address] 06/20/2025 9:15 AM EDT Office Visit [facility] [place] [address] 1st Floor [address] [place] [address] 10/31/2025 9:15 AM EST Office Visit Medical Office Building Urology [address] [facility], [address] [place] [phone] Aracely Pritchard MD [address] [place] [address] documented as of this encounter Visit Diagnoses [...] documented as of this encounter Care Teams Specialized Developer Relationship Specialty Start Date End Date Travis Perez MD [address] [place] [address] PCP - General Family Medicine 04/26/24 Gloria Alas, PharmD [address] [place] [phone] Pharmacist Pharmacy 12/27/23 documented as of this encounter
--- OUTSIDE RECORDS SUMMARY | 2025-05-22 09:29 | XMS_ITS | Encounter Summary ---
Author Organization Healthcare Address [address] [id number] Care Team Providers Care Manager Of Revenue Name Role Phone Pcp, No Primary Care Provider Cassidy Lovelace PharmD Unavailable + Gloria Alas PharmD Unavailable [phone] Travis Perez MD Primary Care Provider Rosa vailable Reason for Visit * Auth/Cert (Routine) Specialty Diagnoses / Procedures Referred By Lloyd foster Referred To Contact Diagnoses Pre-heart transplant, listed Pre-heart transplant, listed [Z76.82] Procedures Right heart catheterization Transplant, Edge Polisher Cardiac Business Analyst Sales Operations [address] [place] [address] Phone: tel: Referral ID Status Reason Start Date Expiration Date Visits Re quested Visits Authorized [id number] 1 1 Encounter Details Date Type Department Care Team (Late st Contact Info) Description 03/20/2024 Lab Requisition [facility] [address] [place] [address] Kev Abrams MD [address] [place] [address] Transplanted organ and tissue status, unspecified Social History Tobacco Use Types Packs/Day Years Used Date Smoking Tobacco: Former Cigarettes Smokeless Tobacco: Never Alcohol Use Standard Drinks/Week Comments Never 0 (1 standard drink = 0.6 oz pur e alcohol) Humiliation, Afraid, Rape, and Kick questionnair e Answer Date Recorded Within the last year, have y ou been afraid of your partner or ex-partner? No 03/06/2024 Within the last year, have y ou been humiliated or emotionally abused in other ways by your partner or ex-partner? No Within the last year, have y ou been kicked, hit, slapped, or otherwise physically hurt by your partner or ex-partner? No 03/06/2024 Within the last year, have y ou been raped or forced to have any kind of sexual activity by your partner or ex-partner? No 03/06/2024 Hunger Vital Sign Answer Date Recorded Within the past 12 months, y ou worried that your food would run out before you got the money to buy more. Never true 03/06/20 24 Within the past 12 months, t he food you bought just didn't last and you didn't have money to get more. Never true 03/06/2024 PRAPARE - Transportation Answer Date Re corded In the past 12 months, has l ack of transportation kept you from medical appointments or from getting medications? No 02/20 In the past 12 months, has l ack of transportation kept you from meetings, work, or from getting things needed for daily living? No 03/06/2024 Housing Stability Vital Sign Answer Phillip e Recorded In the last 12 months, was t here a time when you were not able to pay the mortgage or rent on time? No 03/06/2024 In the last 12 months, how many places have you lived? 2 03/06/2024 In the last 12 months, was t here a time when you did not have a steady place to sleep or slept in a mcfp (including now)? No 03/06/2024 CAGE ASSESSMENT Answer Date Recorded Cage unable to access Not on file 02/29/2024 Cage max number of drinks Not on file 2023 Cage Beverages a week Not on file 02/29/2024 Have you ever felt you should CUT down on your d rinking? 0 02/29/2024 Have you been ANNOYED by people criticizing your drinking? 0 02/29/2024 Have you felt GUILTY about your drinking? 0 02/29/2024 Have you had a drink first t beatris in the morning (EYE-ACETYLENE GAS COMPRESSOR) to steady your nerves or to get rid of a hangover? 0 02/29/2024 CAGE Questionnaire Score 0 024 Utilities Answer Date Recorded In the past 12 months has th e electric, gas, oil, or water company threatened to shut off services in your home? No 03/06/2024 Sex and Gender Information Value Date Recorded Sex Assigned at Male 05/26/2024 2:53 PM EDT Legal Sex Male 6:00 PM EDT Gender Identity Male 12/25/2024 7:21 AM EST Sexual Orientation Not on file documented as of this encounter Functional Status * Calculated C-SSRS Risk Score (Lifetime/Recent) Answer Date of Assessment Author No Risk Indicated 03/22/2024 8:00 AM EDT Judy Irving RN * Question Answer Date of Assessment Author 1. Wish to be (Past 1 Month) No 024 8:00 AM EDT Judy Garcia RN 2. Non-Specific Active Suici elder Thoughts (Past 1 Month) No 03/22/2024 8:00 AM EDT Belinda Garcia RN 6. Suicidal Behavior (Lifetime) No 8:00 AM EDT Judy Garcia RN documented as of this encounter Plan of Treatment Upcoming Encounters Date Type Department Care Team (Late st Contact Info) Description 06/20/2025 8:30 AM EDT Clinical Support [place] [facility] [address], 2nd [place] [address] 06/20/2025 9:15 AM EDT Office Visit [facility] [place] Raimundo [address]st Floor [address] [place] [address] 10/31/2025 9:15 AM EST Office Visit Medical Office Building Urology [address] [facility], [address] [place] [phone] Aracely Pritchard MD [address] [place] [address] documented as of this encounter Procedures Procedure Name Priority Date/Time Associated Diagnosis Comments BILL ONLY TOXOPLASMA GONDII ANTIBODY, IGM (SO) Routine 03/18/2024 6:00 AM EDT Transplanted organ and tissue status, unspecified BILL ONLY TOXOPLASMA GONDII ANTIBODY, IGG (SO) Routine 03/18/2024 6:00 AM EDT Transplanted organ and tissue status, unspecified documented in this encounter Results * BILL ONLY Toxoplasma gondii Antibody, IGG (SO) (03/18/2024 6:00 AM EDT) Blood Venous blood specimen / Unknown 03/18/2024 6:00 AM EDT 03/20/2024 3:56 AM EDT Kev Abrams MD LAB BLOOD ORDERABLES Final Result [facility] [address] [place] [address] * BILL ONLY Toxoplasma gondii Antibody, IGM (SO) (03/18/2024 6:00 AM EDT) Blood Venous blood specimen / Unknown 03/18/2024 6:00 AM EDT 03/20/2024 3:56 AM EDT Kev Abrams MD LAB BLOOD ORDERABLES Final Result [facility] [address] [place] [address] documented in this encounter Visit Diagnoses Diagnosis Transplanted organ and tissue status, unspecified documented in this encounter Additional Health Concerns Infection Onset Date Last Indicated Resolved Time COVID-19 Rule-Out 04/03/2024 04/03/2024 04/03/2024 3:37 PM EDT Respiratory Rule-Out 04/03/2024 04/03/2024 024 8:09 PM EDT Gastrointestinal Rule-Out 05/26/2024 [...] has been complete d for the patient 02/04/2024 11:09 AM EDT A Body Mass Index follow-up plan has been documented for the patient 02/28/2024 2:43 PM EDT documented as of this encounter Care Teams Manager Of Revenue Relationship Specialty Start Date End Date Pcp, No [address] [place] [address] PCP - General Family Medicine 10/22/23 04/25/24 Travis Perez MD [address] [place] [address] PCP - General Family Medicine 04/26/24 Cassidy Middleton, PharmD [address] [place] [address] Pharmacist Pharmacy 12/27/23 06/25/24 Gloria Alas, PharmD [address] [place] [address] Pharmacist Pharmacy 12/27/23 documented as of this encounter
--- OUTSIDE RECORDS SUMMARY | 2025-05-22 09:29 | XMS_ITS | Encounter Summary ---
Author Organization Healthcare Address [address] [place] [address] Care Team Providers Care Tile Finisher Name Role Phone Gloria Alas PharmD Unavailable [phone] Travis Perez MD Primary Care Provider Rosa vailable Encounter Details Date Type Department Care Team (Late st Contact Info) Description 08/18/[address] [facility] [address] [place] [address] Fred Zamudio Social History Tobacco Use Types Packs/Day Years [...] by your partner or ex-partner? No 08/14/2024 Hunger Vital Sign Answer Date Recorded Within [...] place to sleep or slept in a nursing home (including now)? No 08/14/2024 CAGE ASSESSMENT Answer [...] Have you had a drink first t beatirs in the morning (EYE-RETAIL FINANCIAL ANALYST) to steady your nerves or to get rid of a hangover? 0 06/26/2024 CAGE Questionnaire Score 0 024 Utilities Answer Date Recorded In the past 12 months has th e [employer], gas, oil, or water company threatened to [...] Clinical Support [place] [facility] [address], 2nd [place] [address] 06/20/2025 9:15 AM EDT Office Visit [facility] [place] Raimundo [address] [place] [address] 10/31/2025 9:15 AM EST Office Visit Medical Office Building Urology [address] [facility], [address] [place] [address] Aracely Pritchard MD [address] [place] [address] documented as of this encounter Visit Diagnoses Not on filedocumented in this encounter Additional Health Concerns Infection Onset Date Last Indicated Resolved Time e. coli 06/26/2024 08/12/2024 Enteropathogenic E. coli (EPEC) 06/28/2024 COVID-19 Rule-Out 12/08/2024 12/08/2024 12/08/2024 10:36 AM EST Respiratory Rule-Out 12/08/2024 12/08/2024 025 11:41 AM EST Assessment Noted Time A fall risk assessment has been complete d for the patient 08/09/2024 10:23 AM EDT A Body Mass Index follow-up plan has been documented for the patient 08/17/2024 12:10 PM EDT documented as of this encounter Care Teams Tile Finisher Relationship Specialty Start Date End Date [place] [address] PCP - General Family Medicine 04/26/24 Gloria [place] [address] Pharmacist Pharmacy 12/27/23 documented as of this encounter
--- OUTSIDE RECORDS SUMMARY | 2025-05-22 09:29 | XMS_ITS | Encounter Summary ---
Author Organization Healthcare Address [address] [id number] Care Team Providers Care Needle Punch Operator Name Role Phone Gloria Alas PharmD Unavailable [phone] Travis Perez MD Primary Care Provider Rosa vailable Reason for Visit * Auth/Cert (Routine) Specialty Diagnoses / Procedures Referred By Contac t Referred To Contact Diagnoses Incomplete bladder emptying Procedures AZ TRANSURETHRAL ELEC-SURG PROSTATECTOM AZ LASER VAPORIZATION SURGERY PROSTATE, COMPLETE Aracely Pritchard MD [address] [address] Phone: tel: fax: [facility] O[facility] RO[facility] [address] [place] [address] Phone: tel: Referral ID Status Reason Start Date Expiration Date Visits Re quested Visits Authorized [id number] 1 1 Encounter Details Date Type Department Care Team (Latest Contact Info) Description 11/09/2024 Hospital Encounter [facility] [address] [place] [address] Aracely Pritchard MD [address] [address] Incomplete bladder emptying [R33.9] (Primary Dx) Social History Tobacco Use Types [...] any time in the past 12 m [facility], were you homeless or living in a [...] drink first t beatris in the morning (EYE-EXECUTIVE COACH) to steady your nerves or to get rid of a hangover? 0 12/25/2024 CAGE Questionnaire Score 0 025 Utilities Answer Date Recorded In the past 12 months has [employer], gas, oil, or water company threatened to [...] things Not at all 05/02/2025 9:05 AM EDKierra Carrillo Feeling down, depressed, or hopeless Not at all 05/02/2025 9:05 AM EDT Kierra Nye Patient Health Questionnaire -2 Score 0 05/02/2025 9:05 AM EDKierra Carrillo * Question Answer Date of Assessment Author Trouble falling or staying asleep, or sleeping too much Not at all 01/04/2025 12:49 PM EST Radha Ann Feeling tired or having nora le energy Not at all 01/04/2025 12:49 PM EST Radha Newberry Poor appetite or overeating Not at all 01/04/2025 12 :49 PM Radha Brunner Feeling bad about yourself - or that you are a failure or have let yourself or your family down Not at all 01/04/2025 12:49 PM Radha Brunner Trouble concentrating on things, such as reading the newspaper or watching television Not at all 01/04/2025 12:49 PM Radha Brunner Moving or speaking so slowly that other people could have noticed? Or the opposite - being so fidgety or restless that you have been moving around a lot more than usual. Not at all 01/04/2025 12:49 PM Radha Og ms Thoughts that you would be better off or hurting yourself in some way Not at all 01/04/2025 12:49 PM Livia Brunner Patient Health Questionnaire -9 Score 0 01/04/2025 12:49 PM Radha Brunner * Calculated C-SSRS Risk Score (Lifetime/Recent) Answer Date of Assessment Author No Risk Indicated 03/15/2025 8:24 AM EDT Katy Berger RN * If you checked off any problems on this questionnaire so far, Question Answer Date of Assessment Author How difficult have these problems made it for you to do your work, take care of things at home, or get along with other people? Not difficult at all 05/02/2025 9:05 AM EDT Kierra Nye * Question Answer Date of Assessment Author 1. Wish to be (Past 1 Month) No 025 8:24 AM EDT Katy Berger RN 2. Non-Specific Active Suici elder Thoughts (Past 1 Month) No 03/15/2025 8:24 AM EDT Fransisca Berger RN 6. Suicidal Behavior (Lifetime) No 8:24 AM ALIZAT Katy Berger RN documented as of this encounter Plan of Treatment Upcoming Encounters Date Type Department Care Team (Late st Contact Info) Description 06/20/2025 8:30 AM EDT Clinical Support [facility] [address], 2nd [place] [address] 06/20/2025 9:15 AM EDT Office Visit [facility] [place] [facility] [address] [facility] 1st Floor [address] [place] [address] 10/31/2025 9:15 AM EST Office Visit Medical Office Building Urology [address] [facility], [address] [place] [address] Aracely Pritchard MD [address] [place] [address] documented as of this encounter Visit Diagnoses Diagnosis Incomplete bladder emptying [R33.9]- Primary Incomplete bladder emptying documented in this encounter Admitting Diagnoses Diagnosis Incomplete bladder emptying documented in this encounter Additional Health Concerns Infection Onset Date Last Indicated Resolved Time e. coli 06/26/2024 08/12/2024 Enteropathogenic E. coli (EPEC) 06/28/2024 COVID-19 Rule-Out 12/08/2024 12/08/2024 12/08/2024 10:36 AM EST Respiratory Rule-Out 12/08/2024 12/08/2024 025 11:41 AM EST Assessment Noted Time PHQ-9 Depression Total Score: 0 10/25/20 10:29 AM EST A fall risk assessment has been complete d for the patient 11/08/2024 10:20 AM EST A Body Mass Index follow-up plan has been documented for the patient 11/08/2024 10:59 AM EST documented as of this encounter Care Teams Needle Punch Operator Relationship Specialty Start Date End Date Travis Perez MD [address] [place] [address] PCP - General Family Medicine 04/26/24 Gloria Alas, PharmD [address] [place] [address] Pharmacist Pharmacy 12/27/23 documented as of this encounter
--- OUTSIDE RECORDS SUMMARY | 2025-05-22 09:29 | XMS_ITS | Encounter Summary ---
Author Organization [facility] Address [address] [place] [address] Care Team Providers Care Director Of Premium Seat Sales Name Role Phone Mariano Finn MD Primary Care Provider [phone] Reason for Visit * Reason Comments Medication Refill Encounter Details Date Type Department Care Team (Late st Contact Info) Description 08/25/2012 Refill [facility] Cardiology - [facility] [address] [place], [place] [phone] Fermin Shaw Jr, MD [address] [place], [place] [id number] Medication Refill Social History Tobacco Use Types Packs/Day Years Used Date Smoking Tobacco: Former Cigarettes 1 35 0 01/10/1977 - 01/10/2012 Smokeless Tobacco: Never Alcohol Use Standard Drinks/Week Comments Yes 0 (1 standard drink = 0.6 oz pur e alcohol) Very Social drinker Sex and Gender Information Value Date Recorded Sex Assigned at Not on file Legal Sex Male 4:48 PM EST Gender Identity Not on file Sexual Orientation Not on file 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
--- OUTSIDE RECORDS SUMMARY | 2025-05-22 09:29 | XMS_ITS | Encounter Summary ---
Author Organization [facility] Address [address] [place] [address] Care Team Providers Care Deli Worker Name Role Phone Gloria Alas PharmD Unavailable [phone] Travis Perez MD Primary Care Provider Rosa vailable Encounter Details Date Type Department Care Team (Late st Contact Info) Description 04/10/2025 Orders Only [facility] [place] [address] [facility] 1st Floor [address] [place] [phone] Esequiel Gao [facility] [address] [place] [phone] Social History Tobacco Use Types Packs/Day Years [...] place to sleep or slept in a fci (including now)? No 08/14/2024 PHQ-9 Answer Date [...] time in the past 12 m [facility], were you homeless or living in a fci (including now)? No 12/12/2024 CAGE ASSESSMENT Answer [...] drink first t beatris in the morning (EYE-DATA NETWORK ARCHITECT) to steady your nerves or to get [...] Description 06/20/2025 8:30 AM EDT Clinical Support [place] [facility] [address], [address] [place] [address] 06/20/2025 9:15 AM EDT Office Visit [facility] [place] R[facility] [address] [place] [address] 10/31/2025 9:15 AM EST Office Visit Medical Office Building Urology [address] [facility], [address] [place] [address] Aracely Pritchard MD [address] [place] [address] documented as of this encounter Procedures Procedure Name Priority Date/Time Associated Diagnosis Comments CBC W/O DIFFERENTIAL Routine 04/10/2025 6:17 AM EDT MAGNESIUM, PLASMA Routine 04/10/2025 6:1 7 AM EDT COMPREHENSIVE METABOLIC PANEL, PLASMA Routine 04/10/2025 6:17 AM EDT documented in this encounter Results * Magnesium, Plasma (04/10/2025 6:17 AM EDT) External Magnesium (Mg) 1.7 Blood Venous blood specimen / Unknown 04/10/2025 6:17 AM EDT [facility] Provider LAB BLOOD ORDERABLES Mariaa l Result * Comprehensive Metabolic Panel, Plasma (04/10/2025 6:17 AM EDT) External Glucose 150 External BUN 67 External [...] / Unknown 04/10/2025 6:17 AM EDT Result [facility] Provider LAB BLOOD ORDERABLES Mariaa l Result * CBC W/O Differential (04/10/2025 6:17 AM EDT) External WBC 5.4 External Red Blood Cell (RBC) 3.66 External Hemoglobin (Hgb) 11.00 External Hematocrit (Hct) 33.4 External Platelet Count (Plt) 168 Blood Venous blood specimen / Unknown 04/10/2025 6:17 AM EDT Result [facility] Provider LAB BLOOD ORDERABLES Mariaa l [...] documented as of this encounter Care Teams Deli Worker Relationship Specialty Start Date End Date Travis Perez MD [address] [place] [address] PCP - General Family Medicine 04/26/24 Gloria Alas, PharmD [address] [place] [address] Pharmacist Pharmacy 12/27/23 documented as of this encounter
--- OUTSIDE RECORDS SUMMARY | 2025-05-22 09:29 | XMS_ITS | Encounter Summary ---
Author Organization Healthcare Address [address] [id number] Care Team Providers Care Rouge Miller Name Role Phone Gloria Alas PharmD Unavailable [phone] Travis Perez MD Primary Care Provider Rosa vailable Reason for Visit * Reason Comments Results Lab pulled wrong ord ers and did not draw a tacro so he will go back next Wednesday Encounter Details Date Type Department Care Team (Late st Contact Info) Description 04/05/2025 Telephone [facility] [place] [address] [facility] 1st Floor [address] [place] [address] Esequiel Gao [facility] [address] [phone] Results (Lab pulled wrong orders and did not draw a tacro so he will go back next Wednesday ) Social History Tobacco Use Types Packs/Day Years [...] any time in the past 12 m [facility], were you homeless or living in [...] drink first t beatris in the morning (EYE-PASSENGER TIRE BUILDER) to steady your nerves or to get [...] encounter Miscellaneous Notes * Telephone Encounter - Esequiel Gao - 04/05/2025 3:42 PM EDT Spoke with him and he will go back for labs next Wednesday since lab pulled the wrong order and did not draw tacro. I have placed a new lab order and faxed today . documented in this encounter Plan of Treatment Upcoming Encounters Date Type Department Care Team (Late st Contact Info) Description 06/20/2025 8:30 AM EDT Clinical Support [place] [facility] [address], [address]nd [place] [address] 06/20/2025 9:15 AM EDT Office Visit [facility] [place] [facility]aim[facility] [address] [place] [address] 10/31/2025 9:15 AM EST Office Visit Medical Office Building Urology [address] [facility], [address] [place] [phone] Aracely Pritchard MD [address] [place] [address] documented as of this encounter Visit Diagnoses [...] documented as of this encounter Care Teams Rouge Miller Relationship Specialty Start Date End Date Travis Perez MD [address] [place] [address] PCP - General Family Medicine 04/26/24 Gloria Alas, PharmD [address] [place] [phone] Pharmacist Pharmacy 12/27/23 documented as of this encounter
--- OUTSIDE RECORDS SUMMARY | 2025-05-22 09:29 | XMS_ITS | Encounter Summary ---
Author Organization Healthcare Address [address] [place] [address] Care Team Providers Care Retail General Manager Name Role Phone Pcp, No Primary Care Provider UnavailCassidy Rueda PharmD Unavailable + Gloria Alas PharmD Unavailable [phone] Travis Perez MD Primary Care Provider Rosa vailable Encounter Details Date Type Department Care Team (Late Contact Info) Description 07/06/2023 Orders Only External Location [address] [place] [phone] Provider, External Social History Tobacco Use Types Packs/Day Years Used Date Smoking Tobacco: Never Assessed Sex and Gender Information Value Date Recorded Sex Assigned at Male 05/26/2024 2:53 PM EDT Legal Sex Male 6:00 PM EDT Gender Identity Male 12/25/2024 7:21 AM EST Sexual Orientation Not on file documented as of this encounter Plan of Treatment Upcoming Encounters Date Type Department Care Team (Late Contact Info) Description 06/20/2025 8:30 AM EDT Clinical Support [place] [facility] [address], [address]nd [place] [address] 06/20/2025 9:15 AM EDT Office Visit [facility] [place] Raimundo [address] [facility] 1st Floor [address] [place] [address] 10/31/2025 9:15 AM EST Office Visit Medical Office Building Urology [address] [facility], [address] [place] [phone] Aracely Pritchard MD [address] [facility] [address] [place] [address] documented as of this encounter Procedures Procedure Name Priority Date/Time Associated Diagnosis Comments CT THORACIC OUTSIDE IMAGES 07/06/2023 12:53 PM EDT documented in this encounter Results * CT THORACIC OUTSIDE IMAGES (07/06/2023 12:53 PM EDT) Anatomical Region Laterality Modality Computed Tomogra phy 07/06/2023 12:5 3 PM EDT us External Provider IMG CT PROCEDURES Final Result documented in this encounter Visit Diagnoses Not on filedocumented in this encounter Additional Health Concerns Infection Onset Date Last Indicated Resolved Time COVID-19 Rule-Out 12/25/2023 12/25/2023 12/25/2023 4:35 PM EST COVID-19 Rule-Out 04/03/2024 04/03/2024 04/03/2024 3:37 PM [...] Rule-Out 12/08/2024 12/08/2024 025 11:41 AM EST documented as of this encounter Care Teams Retail General Manager Relationship Specialty Start Date End Date Pcp, No [address] [place] [address] PCP - General Family Medicine 10/22/23 04/25/24 Travis Perez MD [address] [place] [address] PCP - General Family Medicine 04/26/24 Cassidy Middleton, PharmD [address] [place] [address] Pharmacist Pharmacy 12/27/23 06/25/24 Gloria Alas, PharmD [address] [place] [address] Pharmacist Pharmacy 12/27/23 documented as of this encounter
--- OUTSIDE RECORDS SUMMARY | 2025-05-22 09:29 | XMS_ITS | Encounter Summary ---
Author Organization Healthcare Address [address] [id number] Care Team Providers Care Consultant Intern Name Role Phone Pcp, No Primary Care Provider Cassidy Lovelace PharmD Unavailable + Gloria Alas PharmD Unavailable [phone] Travis Perez MD Primary Care Provider Rosa vailable Reason for Visit * Auth/Cert (Routine) Specialty Diagnoses / Procedures Referred By Lloyd foster Referred To Contact Diagnoses Pre-heart transplant, listed Pre-heart transplant, listed [Z76.82] Procedures Right heart catheterization Transplant, Recreational Vehicle Repairer Cardiac Hop Weigher [address] [place] [address] Phone: tel: Referral ID Status Reason Start Date Expiration Date Visits Re quested Visits Authorized [id number] 1 1 Encounter Details Date Type Department Care Team (Late st Contact Info) Description 03/20/2024 Lab Requisition [facility] Blood Bank [address] [place] [address] Jovanni Guerin MD [address] [place] [address] General medical exam Social History Tobacco Use Types Packs/Day Years [...] drink first t beatris in the morning (EYE-SHOE PLANNER) to steady your nerves or to get [...] Month) No 024 8:00 AM EDT Judy Garcia, ROSEMARY 2. Non-Specific Active Suici elder Thoughts (Past 1 Month) No 03/22/2024 8:00 AM EDT Belinda Garcia RN 6. Suicidal Behavior (Lifetime) No 8:00 AM EDT Judy Garcia RN documented as of this encounter Plan of Treatment Upcoming Encounters Date Type Department Care Team (Late st Contact Info) Description 06/20/2025 8:30 AM EDT Clinical Support [place] [facility] [address], [address]nd [place] [address] 06/20/2025 9:15 AM EDT Office Visit [facility] [place] Raimundo [address] [place] [address] 10/31/2025 9:15 AM EST Office Visit Medical Office Building Urology [address] [facility], [address] [place] [phone] Aracely Pritchard MD [address] [facility] [address] [place] [address] documented as of this encounter Procedures Procedure Name Priority Date/Time Associated Diagnosis Comments BILL ONLY ABO/RH TYPE Routine 03/17/2024 6:00 PM EDT General medical exam documented in this encounter Results * Nav Only ABO/Rh Type (03/17/2024 6:00 PM EDT) Blood Bank Lab Only (Blood Bank Lab Only) 03/17/2024 6:00 PM EDT 03/20/2024 8:00 AM EDT us Jovanni Guerin MD LAB BLOOD BANK TEST ORDERAB LES Final Result Performing Organization Address City/State/[facility] Co de Phone Number BLOOD BANK [address] documented in this encounter Visit Diagnoses Diagnosis General medical exam Unspecified general medical examination documented in this encounter Additional Health Concerns [...] documented as of this encounter Care Teams Consultant Intern Relationship Specialty Start Date End Date Pcp, No [address] [place] [address] PCP - General Family Medicine 10/22/23 04/25/24 Travis Perez MD [address] [place] [address] PCP - General Family Medicine 04/26/24 Cassidy Middleton, PharmD [address] [place] [address] Pharmacist Pharmacy 12/27/23 06/25/24 Gloria Alas, PharmD [address] [place] [address] Pharmacist Pharmacy 12/27/23 documented as of this encounter
--- OUTSIDE RECORDS SUMMARY | 2025-05-22 09:29 | XMS_ITS ---
Author Organization Healthcare Address 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 Survival Infection Treatment Organism Resolved 08/23/2024 158 days Pulmonary histop lasmosis capsulati, unspecified (CMS/HCC) 06/27/2024 101 days Urinary tract in fection without hematuria 06/30/2024 04/09/2024 22 days Aspiration pneum onia of right lower lobe (CMS/HCC) 05/08/2024 12/25/2023 Pneumonia due to organism 03/20/2024 Donor Information Organ ABO Source Meets Risk Criteria HLA Match Mismatches Cross Match Heart Transplanted O DBD Yes A: B: DR: Heart Donor Serology Results Anti-CMV CMV IgG: Positive EBV IgG EBV VCA IgG: Positive Anti-HBcAb HBC Total: Negative HBsAg HBsAg: Negative HBV DNA HBV HERLINDA: Negative Anti-HCV HCV: Negative Anti-HIV I/II HIV-1: Negative Anti-HTLV I/II HTLV: Not Done RPR/VDRL RPR: Negative EBV IgM EBV VCA IgM: Negative HBsAb HBsAb: Not Done EBNA No results on file SARS CoV-2 No results on file Care Team Name Role Phone Fax Email Kylie Gonzales, second officerHair Boiler Operator [phone] N/A N/A Kev Abrams MD Transplant Physician [phone] N/A Danette Sol Guard Captain [phone] N/A N/A Jeffery Maurice MD Referring Physician [phone] N/A Travis Perez MD Primary Care Provider N/A N/A N/A Crow Clifford MD Surgeon [phone] N/A Events Post-Transplant Pre-Transplant Admitted: 02/28/2024 Referred: 09/29/2023 Transplanted: 03/18/2024 Evaluation began: 3 Discharged: 03/31/2024 Committee: 11/09/2023 Center waitlisted: 4 Appointments (04/22/2025 - 06/22/2025) When With Visit Type Description 06/20/2025 Transplant Office Visit - T ransplant
--- OUTSIDE RECORDS SUMMARY | 2025-05-22 09:29 | XMS_ITS | Encounter Summary ---
Author Organization [facility] Address [address] [place] [address] Care Team Providers Care Certified Fire Investigator Name Role Phone Gloria Alas PharmD Unavailable [phone] Travis Perez MD Primary Care Provider Rosa vailable Encounter Details Date Type Department Care Team (Late st Contact Info) Description 04/17/2025 Orders Only [facility] [place] [address] [facility] 1st Floor [address] [place] [phone] Esequiel Gao [facility] [address] [phone] Social History Tobacco Use Types Packs/Day Years [...] any time in the past 12 m [facility], were you homeless or living in [...] drink first t beatris in the morning (EYE-WRECKER DRIVER) to steady your nerves or to get [...] Description 06/20/2025 8:30 AM EDT Clinical Support [place] [facility] [address]nd [place] [address] 06/20/2025 9:15 AM EDT Office Visit [facility] [place] Raimundo [address] [place] [address] 10/31/2025 9:15 AM EST Office Visit Medical Office Building Urology [address] [facility], [address] [place] [address] Aracely Pritchard MD [address] [place] [address] [place] [address] documented as of this encounter Procedures Procedure Name Priority Date/Time Associated Diagnosis Comments TACROLIMUS LEVEL Routine 04/10/2025 6:17 AM EDT documented in this encounter Results * Tacrolimus (04/10/2025 6:17 AM EDT) External FK506 (Prograf, Tacrolimus) 8.7 Blood Venous blood specimen / Unknown 04/10/2025 6:17 AM EDT us Historical Provider LAB BLOOD [...] documented as of this encounter Care Teams Certified Fire Investigator Relationship Specialty Start Date End Date Travis Perez MD [address] [place] [address] PCP - General Family Medicine 04/26/24 Gloria Alas, PharmD [address] [place] [phone] Pharmacist Pharmacy 12/27/23 documented as of this encounter
--- OUTSIDE RECORDS SUMMARY | 2025-05-22 09:29 | XMS_ITS | Encounter Summary ---
Author Organization Healthcare Address [address] [id number] Care Team Providers Care Garment Alteration Examiner Name Role Phone Pcp, No Primary Care Provider Unavailana e Cassidy Middleton PharmD Unavailable + Gloria Alas PharmD Unavailable [phone] Travis Perez MD Primary Care Provider Rosa vailable Encounter Details Date Type Department Care Team (Late st Contact Info) Description 03/20/2024 Lab Requisition [facility] Lab [address] [place] [address] Prieto Gracia MD [address] [facility] [place] [address] [place] [address] Encounter for general adult medical [...] place to sleep or slept in a mcc (including now)? No 03/06/2024 CAGE ASSESSMENT Answer [...] drink first t beatris in the morning (EYE-DIRECTOR OF DISTRIBUTION) to steady your nerves or to get [...] Clinical Support [place] [facility] [address], 2nd [place] [address] 06/20/2025 9:15 AM EDT Office Visit [facility] [place] Raimundo [address] [place] [address] 10/31/2025 9:15 AM EST Office Visit Medical Office Building Urology [address] [facility], [address] [place] [address] Aracely Pritchard MD [address] [place] [address] [place] [address] documented as of this encounter Procedures Procedure Name Priority Date/Time Associated Diagnosis Comments MULTI DRUG RESISTANCE TEST Routine 03/20/2024 10:00 AM EDT Encounter for general adult medical examination without abnormal findings documented in this encounter Results * Multi Drug Resistance Test (03/20/2024 10:00 AM EDT) Culture No growth at day 1 03/21/2024 12:45 PM EDT HEALTHCARE LAB Swab (Nares and Abbey Rectal) 03/20/2024 10:00 AM EDT 03/20/2024 4:29 PM EDT us Prieto Gracia MD LAB MICROBIOLOGY - GEN ERAL ORDERABLES Final Result HEALTH[facility]ARE LAB [address] [place] [address] documented in this encounter Visit Diagnoses Diagnosis [...] documented as of this encounter Care Teams Garment Alteration Examiner Relationship Specialty Start Date End Date Pcp, No [address] [place] [address] PCP - General Family Medicine 10/22/23 04/25/24 Travis Perez MD [address] [place] [address] PCP - General Family Medicine 04/26/24 Cassidy Middleton, PharmD [address] [place] [address] Pharmacist Pharmacy 12/27/23 06/25/24 Gloria Alas, PharmD [address] [place] [address] Pharmacist Pharmacy 12/27/23 documented as of this encounter
--- OUTSIDE RECORDS SUMMARY | 2025-05-22 09:29 | XMS_ITS | Encounter Summary ---
Author Organization Healthcare Address [address] [place] [address] Care Team Providers Care Blueprinting Machine Operator Name Role Phone Gloria Alas PharmD Unavailable [phone] Travis Perez MD Primary Care Provider Rosa vailable Encounter Details Date Type Department Care Team (Late st Contact Info) Description 04/17/2025 Results Follow-Up [facility] [place] [address] [facility] 1st Floor [address] [place] [address] Kylie Gonzales, RN [id number] [address] [place] [phone] Social History Tobacco Use Types Packs/Day Years [...] place to sleep or slept in a detention (including now)? No 08/14/2024 PHQ-9 Answer Date [...] time in the past [address] [facility], were you homeless or living in a detention (including now)? No 12/12/2024 CAGE ASSESSMENT Answer [...] drink first t beatris in the morning (EYE-ENVIRONMENTAL PROGRAMS SPECIALIST) to steady your nerves or to get [...] Encounter Note - Kylie Gonzales RN - 04/17/2025 8:44 AM EDT Tacro 8.7 You just increased his tacro 2 weeks ago documented in this encounter Plan of Treatment Upcoming Encounters Date Type Department Care Team (Late st Contact Info) Description 06/20/2025 8:30 AM EDT Clinical Support [place] [facility] [address], [address]nd [place] [address] 06/20/2025 9:15 AM EDT Office Visit [facility] [place] Raimundo [address] [facility] 1st Floor [address] [place] [address] 10/31/2025 9:15 AM EST Office Visit Medical Office Building Urology [address] [facility], [address] [place] [address] Aracely Pritchard MD [address] [place] [address] documented as of this encounter Visit Diagnoses [...] documented as of this encounter Care Teams Blueprinting Machine Operator Relationship Specialty Start Date End Date Travis Perez MD [address] [place] [address] PCP - General Family Medicine 04/26/24 Gloria Alas, PharmD [address] [place] [address] Pharmacist Pharmacy 12/27/23 documented as of this encounter
== END 2025-05-22 23:59 | disposition home or self-care (01) ==
LOC: RAD 09:25
PROVIDERS: PCP Family Medicine; Visit Provider Nurse Practitioner Family
DX: S99.921A Unspecified injury of right foot, initial encounter (principal)
CPT/HCPCS: 73610; 73630

== ENCOUNTER 2025-05-23 09:47 | Outpatient (RCR) | payer MEDICARE, SELFPAY | END 2025-05-23 23:59 | disposition home or self-care (01) | LOC: PT 09:47 | PROVIDERS: Visit Provider Physician Assistant | DX: S82.891A Other fracture of right lower leg, initial encounter for closed fracture (principal) | CPT/HCPCS: 97760 ==